=== PATIENT | male | born 1935 | race Caucasian/White ===

== ENCOUNTER 2019-09-11 14:23 | Inpatient (IN) | payer MEDICARE ==
[~2019-09-11] VITALS: Ht 188 cm; Wt 95.2 kg
[2019-09-11] VITALS (13 sets, daily range): BP systolic 138–194; BP diastolic 62–83
[2019-09-11] MEDS ORDERED: ELIQ5TAB PO (14:46)
[2019-09-11] MEDS ORDERED: PRAV10TA4 PO (14:46)
[2019-09-11] MEDS ORDERED: VENTAER INH (14:46)
[2019-09-11] MEDS ORDERED: DILT180C28 PO (14:46)
[2019-09-11] MEDS ORDERED: HYDR-3911 PO (14:46)
[2019-09-11] MEDS ORDERED: POTA10CA32 PO (14:50)
[2019-09-11] MEDS ORDERED: FURO40TA2 PO (14:50)
[2019-09-11] MEDS ORDERED: LOSA50TA88 PO (14:50)
[2019-09-11] MEDS ORDERED: OMEP-218 PO (14:50)
[2019-09-11 14:57] LABS: BASO # 0.1 10^3/uL (0.0-0.2); BASO % 0.5 % (0.0-1.0); EOS # 0.1 10^3/uL (0.0-0.5); EOS % 0.5 % (0.0-3.0); HEMATOCRIT 23.7 % (42.0-52.0); LYMPH # 1.4 10^3/uL (1.5-5.0); LYMPH % 13.1 % (24.0-44.0); MEAN CORPUSCULAR HEMOGLOBIN 16.2 pg (27.0-33.0); MEAN CORPUSCULAR HGB CONC 27.4 g/dl (32.0-36.5); MEAN CORPUSCULAR VOLUME 59.1 fl (80.0-96.0); MONO # 0.9 10^3/uL (0.0-0.8); NEUTROPHILS # 7.9 10^3/uL (1.5-8.5); NEUTROPHILS % 76.6 % (36.0-66.0); PLATELET COUNT, AUTOMATED 459 10^3/uL (150-450); RED BLOOD COUNT 4.01 10^6/uL (4.30-6.10); WHITE BLOOD COUNT 10.3 10^3/uL (4.0-10.0)
[2019-09-11 15:08] LABS: INR 1.57; PROTHROMBIN TIME 18.5 SECONDS (11.8-14.0)
[2019-09-11 15:15] LABS: HEMOGLOBIN 6.5 g/dl (13.5-17.5)
[2019-09-11 15:36] LABS: ALBUMIN 3.5 GM/DL (3.2-5.2); ALT/SGPT 13 U/L (12-78); BILIRUBIN,DIRECT 0.2 MG/DL (0.0-0.2); BILIRUBIN,TOTAL 0.4 MG/DL (0.2-1.0); BLOOD UREA NITROGEN 26 MG/DL (7-18); CALCIUM LEVEL 8.6 MG/DL (8.8-10.2); CARBON DIOXIDE LEVEL 29 MEQ/L (21-32); CHLORIDE LEVEL 107 MEQ/L (98-107); CK-MB VALUE MASS 1.4 NG/ML (<3.6); CPK CREATINE PHOSPHOKINASE 56 U/L (39-308); CREATININE FOR GFR 1.48 MG/DL (0.70-1.30); GLUCOSE, FASTING 104 MG/DL (70-100); LIPASE 111 U/L (73-393); NT-PRO BNP 739 PG/ML (<450); POTASSIUM SERUM 4.5 MEQ/L (3.5-5.1); SODIUM LEVEL 142 MEQ/L (136-145); THYROID STIMULATING HORMONE 0.983 uIU/ML (0.358-3.740); TOTAL PROTEIN 6.8 GM/DL (6.4-8.2); TROPONIN I < 0.02 NG/ML (< 0.10)
[2019-09-11] MEDS ORDERED: NS 1,000 ML IV SCH (15:59)
--- NOTE | 2019-09-11 16:11 | REP ---
REASON: Chest pain. COMPARISON: 09/22/2013, the latest prior. The technique utilized in obtaining the radiograph has magnified the cardiac silhouette and accentuated the interstitial markings. There is cardiomegaly accentuated by technique. The lung ricci are clear and the pleural angles are sharp. There is no significant change in the osseous structures. IMPRESSION: Cardiomegaly without evidence of acute cardiopulmonary disease. Electronically Signed by Grzegorz Justice DO 09/11/2019 05:07 P
[2019-09-11 16:36] LABS: FERRITIN 5 NG/ML (26-388); IRON (FE) 13 UG/DL (65-175); PERCENT SATURATION 3.2 % (19.7-50.0); TOTAL IRON BINDING CAPACITY 406 UG/DL (250-450)
--- NOTE | 2019-09-11 17:49 | HPEPDOC ---
[facility] Medical History & Physical Date of Admission Sep 11, 2019 Date of Service: Sep 11, 2019 Attending Physician: CHARLENE CORDON MD History and Physical TIME OF SERVICE: 5:10 PM CHIEF COMPLAINT: Sent by PCP HISTORY OF PRESENT ILLNESS: This is an 84 year old gentleman who was sent to the ER by his PCP because his "blood counts and hemoglobin were low". Repeat blood work showed a hemoglobin of 6.9. He denied having chest pain, dizziness, shortness of breath, or abdominal pain. He did admit to feeling unsteady on his feet for a few months, which started shortly after he started taking Elquis. He has had multiple colonoscopies done by Dr. Galvan with resection of multiple colonic polyps. REVIEW OF SYSTEMS: 12 point review of systems negative except as listed in HPI PAST MEDICAL/ SURGICAL HISTORY: Chronic HTN Atrial fibrillation CKD 3 Colon polyps. History of CVA Renal cyst, status post drainage Abdominal hernia repair SOCIAL HISTORY: He doesn't smoke He resides in [place] during the winter FAMILY HISTORY: Mother had a cerebral aneurysm ALLERGIES: Please see below. HOME MEDICATIONS: Please see below. PHYSICAL EXAMINATION: Vital Signs Date Time Temp Pulse Resp B/P (MAP) Pulse Ox O2 Delivery O2 Flow Rate FiO2 09/11/19 14:34 98.0 70 20 162/72 (102) 100 09/11/19 16:00 Room Air GEN: well-nourished / well developed/ NAD INTEGUMENT: not flushed/ not jaundice HEENT: NCAT / mucus membranes moist and pink CVS: RRR/NMRG/ radial pulses intact / no lower extremity edema LUNGS: able to speak full sentences without stopping to take a breath / lungs are clear to auscultation bilaterally on room air ABDOMEN: Contour (distended) / soft & not tender with palpation NEURO: CN 2-12 are grossly intact / speech is not dysarthric PSYCH: alert and oriented / able to understand and follow all commands LABORATORY DATA: Immature Granulocyte % (Auto) 0.3, Neutrophils (%) (Auto) 76.6H, Lymphocytes (%) (Auto) 13.1L, Monocytes (%) (Auto) 9.0H, Eosinophils (%) (Auto) 0.5, Basophils (%) (Auto) 0.5, Neutrophils # (Auto) 7.9, Lymphocytes # (Auto) 1.4L, Monocytes # (Auto) 0.9H, Eosinophils # (Auto) 0.1, Basophils # (Auto) 0.1, Nucleated Red Blood Cells % (auto) 0.2H, Prothrombin Time 18.5H, Prothromb Time International Ratio 1.57, Activated Partial Thromboplast Time 36.0, Anion Gap 6L, Glomerular Filtration Rate 48.0, Calcium Level 8.6L, Iron Level 13L, Total Iron Binding Capacity 406, Transferrin % Saturation 3.2L, Ferritin 5L, Total Bilirubin 0.4, Direct Bilirubin 0.2, Aspartate Amino Transf (AST/SGOT) 5L, Alanine Aminotransferase (ALT/SGPT) 13, Alkaline Phosphatase 72, Total Creatine Kinase 56, Creatine Kinase MB 1.4, Creatine Kinase MB Relative Index 2.50, Troponin I < 0.02, KN-Cnf-C-Type Natriuretic Peptide 739H, Total Protein 6.8, Albumin 3.5, Albumin/Globulin Ratio 1.1, Lipase 111, Thyroid Stimulating Hormone (TSH) 0.983 IMAGING: Chest x-ray "IMPRESSION: Cardiomegaly without evidence of acute cardiopulmonary disease." ASSESSMENT: Mr. Arguelles is an 84-year-old with a history of HTN, A. fib, CKD 3, history of CVA, and history of colonic polyps who is admitted for management of acute blood loss anemia 2/2 LGIB. PLAN: 1. Acute Blood loss Anemia / Lower GI Bleed This is likely the cause of his c/o of weakness. GI bleed may be due to polyps. Other less likely causes include diverticulosis, angiodysplasia's (most common cause of small-bowel bleeding in older patients), AVM, colorectal cancer Suspect thrombocytosis is reactive 2/2 iron deficiency Plan: admit to PCU / fall precautions / check orthostats / transfuse 2 units of PRBCs now / CLD w IVF pending evaluation by / f/u serial Hg & iron studies / hold apixaban / PT eval prior to discharge 2. Resistant HTN The cause of the acute elevation in BP unclear at this time. His BNP is also elevated and his chest xray show cardiomegaly Plan: increase hydralazine from 50mg to 75 mgBID, c/w losartan 50mg BID, lasix 40mg daily and diltiazem 180mg daily / f/u Echo to r/o hypertensive heart dz 3. ROBI on CKD 3 vs CKD3 Plan: IVF / f/u Ulytes for FEUrea & renal US 4. A Fib - diltiazem/ hold apixaban 5. hx of CVA - pravastatin DVT PROPHYLAXIS: SCDs DISPOSITION: home after more than 2 midnight's stay Home Medications Scheduled Diltiazem HCl (Dilt-Xr) 180 Mg Cap.er.deg, 180 MG PO DAILY Furosemide (Furosemide) 40 Mg Tablet, 40 MG PO DAILY Hydralazine HCl (Hydralazine HCl) 50 Mg Tablet, 50 MG PO BID Losartan Potassium (Losartan Potassium) 50 Mg Tablet, 50 MG PO BID Potassium Chloride (Potassium Chloride) 10 Meq Capsule.er, 10 MEQ PO DAILY Pravastatin Sodium (Pravastatin Sodium) 10 Mg Tablet, 10 MG PO QHS Scheduled PRN Albuterol Sulfate (Ventolin Hfa) 18 Gm Hfa.aer.ad, 2 PUFFS INH Q6H PRN for SHORTNESS OF BREATH Omeprazole (Omeprazole) 20 Mg Capsule.dr, 20 MG PO DAILY PRN for HEARTBURN Allergies Coded Allergies: No Known Allergies (Unverified , 09/11/19) A-FIB/CHADSVASC A-FIB History Current/History of A-Fib/PAF?: Yes Current PO Anticoag Therapy: No Treatment Reason Anticoagulant not given: Current bleeding CHARLENE CORDON MD Sep 11, 2019 17:49
[2019-09-11] MEDS ORDERED: OMEPRAZOLE 20 MG CAP PO PRN (18:00)
[2019-09-11] MEDS ORDERED: ALBUTEROL 90 MCG/ACT 8GM HFA INHALER INH PRN (18:00)
[2019-09-11] MEDS: LOSARTAN 50MG TABLET PO SCH (18:32)
[2019-09-11] MEDS: **hydrALAZINE HCL** 25 MG TAB PO SCH (18:32)
--- NOTE | 2019-09-11 20:31 | REPVR ---
PROCEDURE INFORMATION: Exam: US Retroperitoneal Limited, Kidneys Exam date and time: 09/11/2019 5:03 PM Age: 84 years old Clinical indication: Abnormal findings; Abnormal lab test; Abnormal kidney function lab tests; Additional info: Didier TECHNIQUE: Imaging protocol: Real-time ultrasound of the retroperitoneum with image documentation. Examination was focused on the kidneys. COMPARISON: No relevant prior studies available. FINDINGS: Right kidney: Right kidney measures 10.7 x 4.7 x 4.1 cm. Lower pole cyst right kidney measures 3.4 x 3.1 x 3 cm. Left kidney: Left kidney measures 10 x 4.7 x 5 cm. Small cyst lower pole measures 1.2 x 1.2 x 1.2 cm. Prostate: [id number] prostatomegaly with the prostate measuring 4.3 x 3.3 x 3.9 cm. Bladder: Visualized bladder unremarkable. IMPRESSION: 1. Bilateral renal cysts. No complex features. 2. Mild to moderate prostatomegaly. Electronically signed by: Lito Staley On 09/11/2019 20:30:48 PM
[2019-09-11] MEDS ORDERED: PRAVASTATIN 10 MG TAB PO SCH (21:00)
--- NOTE | 2019-09-11 21:35 | ECGEPIP ---
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
[2019-09-11 22:12] LABS: HEMATOCRIT 25.6 % (42.0-52.0); HEMOGLOBIN 7.1 g/dl (13.5-17.5)
[2019-09-12] VITALS (11 sets, daily range): BP systolic 158–181; BP diastolic 62–84
[2019-09-12 05:07] LABS: HEMATOCRIT 28.7 % (42.0-52.0); HEMOGLOBIN 8.4 g/dl (13.5-17.5); MEAN CORPUSCULAR HEMOGLOBIN 18.8 pg (27.0-33.0); MEAN CORPUSCULAR HGB CONC 29.3 g/dl (32.0-36.5); MEAN CORPUSCULAR VOLUME 64.1 fl (80.0-96.0); RED BLOOD COUNT 4.48 10^6/uL (4.30-6.10); WHITE BLOOD COUNT 7.4 10^3/uL (4.0-10.0)
[2019-09-12 05:13] LABS: PLATELET COUNT, AUTOMATED 313 10^3/uL (150-450)
[2019-09-12 05:27] LABS: BLOOD UREA NITROGEN 19 MG/DL (7-18); CALCIUM LEVEL 8.4 MG/DL (8.8-10.2); CARBON DIOXIDE LEVEL 29 MEQ/L (21-32); CHLORIDE LEVEL 109 MEQ/L (98-107); CREATININE FOR GFR 1.09 MG/DL (0.70-1.30); GLOMERULAR FILTRATION RATE > 60.0 (>35); GLUCOSE, FASTING 82 MG/DL (70-100); SODIUM LEVEL 139 MEQ/L (136-145)
[2019-09-12] MEDS: **hydrALAZINE HCL** 25 MG TAB PO SCH (08:20)
[2019-09-12] MEDS: LOSARTAN 50MG TABLET PO SCH (08:21)
[2019-09-12] MEDS ORDERED: diltiaZEM **CD** 180 MG CAP PO SCH (09:00)
[2019-09-12] MEDS ORDERED: FUROSEMIDE 40 MG TAB PO SCH (09:00)
[2019-09-12] MEDS ORDERED: POTASSIUM CHLORIDE 10 MEQ SR TABLET PO SCH (09:00)
--- NOTE | 2019-09-12 10:07 | IPNPDOC ---
Subjective Date Seen The patient was seen on 09/12/19. Subjective Chief Complaint/HPI Patient is asymptomatic as per patient, he only had felt tiredness. No other symptoms until he was seen by PCP and was found to have a very low hemoglobin of 6.5, and was transferred to ED for further care. Patient denies dark stools, nausea, vomiting with blood etc General: Denies: ROS Unobtainable, Chills, Night Sweats, Fatigue, Malaise, Normal Appetite, Other Symptoms Constitutional: Denies: Chills, Fever, Malaise, Night Sweats, Weakness, Fatigue, Weight Loss, Lethargy, Other Pulmonary: Denies: Dyspnea, Cough, Pleuritic Chest Pain, Other Symptoms Cardiovascular: Denies: Chest Pain, Palpitations, Orthopnea, Paroxysmal Noc. Dyspnea, Edema, Lt Headedness, Other Symptoms Gastrointestinal: Denies: Nausea, Vomiting, Abdominal Pain, Diarrhea, Constipation, Melena, Hematochezia, Other Symptoms Hematologic: Denies: Bruising, Bleeding Excessively, Petecchia, Purpura, Enlarged Lymph Nodes, Other Hematologic Endocrine: Denies: Polydipsia, Polyphagia, Polyuria, Heat Intolerance, Cold In tolerance, Other Endocrine Sx Musculoskeletal: Denies: Neck Pain, Back Pain, Shoulder Pain, Arm Pain, Hand Pain, Leg Pain, Foot Pain, Joint Pain, Muscle Pain, Spasms, Other Symptoms Neurological: Denies: Weakness, Numbness, Incoordination, Change in speech, Confusion, Seizures, Other Symptoms Objective Physical Examination General Exam: Positive: Alert, Cooperative Eye Exam: Positive: PERRLA, Conjunctiva & lids normal ENT Exam: Positive: Atraumatic, Mucous membr. moist/pink Neck Exam: Positive: Supple Chest Exam: Positive: Clear to auscultation Heart Exam: Positive: Rate Normal, Normal S1 Abdomen Exam: Positive: Normal bowel sounds, Soft Male Exam: Positive: Normal Genital Exam Extremity Exam: Positive: Normal pulses Skin Exam: Positive: Nl turgor and temperature Neuro Exam: Positive: Strength at 5/5 X4 ext, Sensation Intact, Cranial Nerves 3-12 NL Psych Exam: Positive: Mood NL, Oriented x 3 Assessment /Plan Problems (1) Anemia due to blood loss Status: Acute Problem Text: Acute Blood loss Anemia most likely secondary to Lower GI Bleed Patient has been complaining of generalized weakness since last few weeks, and was found to have a hemoglobin of 6.5, PCP GI bleed may be due to polyps. Other less likely causes include diverticulosis, angiodysplasia's (most common cause of small-bowel bleeding in older patients), AVM, colorectal cancer Suspect thrombocytosis is reactive 2/2 iron deficiency Patient just received total 5 units of PRBC after fourth unit. His hemoglobin is 8.4 and 28.7 He is a scheduled to be seen by for possible EGD and colonoscopy Continue PPI and monitor CBC (2) Afib Status: Chronic Problem Text: Patient had a history of A. fib and he is taking diltiazem and apaxiban . He presently was on by mouth Coumadin later was changed to apaxiban since January 2019 Plethora is on hold secondary to GI bleed, will restart once cleared from GI and surgery n (3) HTN (hypertension) Status: Chronic Problem Text: History of chronic hypertension and follows up with PCP His BNP is also elevated and his chest xray show cardiomegaly Increase hydralazine to 50 mg by mouth 4 times a day with holding parameters, c/w losartan 50mg BID, lasix 40mg daily and diltiazem 180mg daily / f/u Echo to r/o hypertensive heart dz Blood pressure is still slightly elevated 178/78. We will monitor patient's blood pressure on current increased dose of medications and adjust dose accordingly in 24-48 hours (4) ROBI (acute kidney injury) Status: Acute Problem Text: ROBI on CKD 3 vs [id number]. His BUN is 19 and creatinine 1.09. Today Continue IVF / f/u Ulytes for FEUrea , monitor renal function Renal sonogram shows:IMPRESSION: 1. Bilateral renal cysts. No complex features. 2. Mild to moderate prostatomegaly. Plan/VTE VTE Prophylaxis Ordered?: Yes VS, I&O, 24H, Fishbone Vital Signs/I&O Vital Signs Date Time Temp Pulse Resp B/P (MAP) Pulse Ox O2 Delivery O2 Flow Rate FiO2 09/12/19 08:21 72 09/12/19 08:20 158/62 09/12/19 08:00 98.0 17 94 Room Air I&O- Last 24 Hours up to 6 AM 09/12/19 05:59 Intake Total 1450 ml Output Total 150 ml Balance 1300 ml Laboratory Data 24H LABS Laboratory Tests 2 09/11/19 14:47: Immature Granulocyte % (Auto) 0.3, Neutrophils (%) (Auto) 76.6H, Lymphocytes (%) (Auto) 13.1L, Monocytes (%) (Auto) 9.0H, Eosinophils (%) (Auto) 0.5, Basophils (%) (Auto) 0.5, Neutrophils # (Auto) 7.9, Lymphocytes # (Auto) 1.4L, Monocytes # (Auto) 0.9H, Eosinophils # (Auto) 0.1, Basophils # (Auto) 0.1, Nucleated Red Blood Cells % (auto) 0.2H, Prothrombin Time 18.5H, Prothromb Time International Ratio 1.57, Activated Partial Thromboplast Time 36.0, Anion Gap 6L, Glomerular Filtration Rate 48.0, Calcium Level 8.6L, Iron Level 13L, Total Iron Binding Capacity 406, Transferrin % Saturation 3.2L, Ferritin 5L, Total Bilirubin 0.4, Direct Bilirubin 0.2, Aspartate Amino Transf (AST/SGOT) 5L, Alanine Aminotransferase (ALT/SGPT) 13, Alkaline Phosphatase 72, Total Creatine Kinase 56, Creatine Kinase MB 1.4, Creatine Kinase MB Relative Index 2.50, Troponin I < 0.02, BN-Xfr-X-Type Natriuretic Peptide 739H, Total Protein 6.8, Albumin 3.5, Albumin/Globulin Ratio 1.1, Lipase 111, Thyroid Stimulating Hormone (TSH) 0.983 09/12/19 04:55: Nucleated Red Blood Cells % (auto) 0.5H, Anion Gap 1L, Glomerular Filtration Rate > 60.0, Calcium Level 8.4L 09/12/19 06:12: Urine Random Creatinine 103.0, Urine Random Sodium 91 CBC/BMP Laboratory Tests 09/11/19 14:47 09/11/19 21:58 09/12/19 04:55 EVELYN CAR MD Sep 12, 2019 10:07
[2019-09-12] MEDS ORDERED: SLF 3 ML SYR IV PRN (11:15)
[2019-09-12] MEDS ORDERED: **hydrALAZINE HCL** 25 MG TAB PO SCH (12:00)
--- NOTE | 2019-09-12 12:14 | DS.PDOC ---
Discharge Summary General Date of Admission Sep 11, 2019 at 15:59 Date of Discharge 09/12/19 Discharge Summary PROCEDURES PERFORMED DURING STAY: None. ADMITTING DIAGNOSES: 1. Acute blood loss anemia. DISCHARGE DIAGNOSES: 1. Acute blood loss anemia, atrial fibrillation with controlled ventricular rate, hypertension, acute kidney injury- resolved COMPLICATIONS/CHIEF COMPLAINT: Anemia Due To Blood Loss. HISTORY OF PRESENT ILLNESS: This is an 84 year old gentleman who was sent to the ER by his PCP because his "blood counts and hemoglobin were low". Repeat blood work showed a hemoglobin of 6.9. He denied having chest pain, dizziness, shortness of breath, or abdominal pain. He did admit to feeling unsteady on his feet for a few months, which started shortly after he started taking Elquis. He has had multiple colonoscopies done by Dr. Galvan with resection of multiple colonic polyps.. HOSPITAL COURSE: (1) Anemia due to blood loss Acute Blood loss Anemia most likely secondary to Lower GI Bleed Patient has been complaining of generalized weakness since last few weeks, and was found to have a hemoglobin of 6.5, PCP GI bleed may be due to polyps. Other less likely causes include diverticulosis, angiodysplasia's (most common cause of small-bowel bleeding in older patients), AVM, colorectal cancer Suspect thrombocytosis is reactive 2/2 iron deficiency Patient just received total 5 units of PRBC after fourth unit. His hemoglobin is 8.4 and 28.7 Patient was seen by today, he recommended to hold Sandra quest patient can be discharged home and it seems like a chronic GI bleed and he will follow patient on 09/17/2019 for colonoscopy as an outpatient Pt will be discharged home today on all his current home meds (2) Afib Patient had a history of A. fib and he is taking diltiazem and apaxiban He presently was on by mouth Coumadin later was changed to apaxiban since January 2019 We will hold by mouth Eliquis for procedure to be performed by surgery as an outpatient (3) HTN (hypertension) History of chronic hypertension and follows up with PCP His BP also elevated and his chest xray show cardiomegaly Increase hydralazine to 50 mg by mouth 4 times a day with holding parameters, c/w losartan 50mg BID, lasix 40mg daily and diltiazem 180mg daily / f/u Echo to r/o hypertensive heart dz Blood pressure is still slightly elevated 178/78. We will monitor patient's blood pressure on current increased dose of medications and adjust dose accordingly in 24-48 hours (4) ROBI (acute kidney injury) ROBI on CKD 3 vs [id number]. His BUN is 19 and creatinine 1.09. Today Continue IVF / f/u Ulytes for FEUrea , monitor renal function Renal sonogram shows:IMPRESSION: 1. Bilateral renal cysts. No complex features. 2. Mild to moderate prostatomegaly. DISCHARGE MEDICATIONS: Please see below. ALLERGIES: Please see below. PHYSICAL EXAMINATION ON DISCHARGE: VITAL SIGNS: Please see below. GENERAL: Within normal limits HEENT: PERRLA. Extraocular muscles intact NECK: Supple CARDIOVASCULAR EXAMINATION: S1, S2, regular RESPIRATORY EXAMINATION: Clear to A&P ABDOMINAL EXAMINATION: , Soft, nontender, bowel sound present EXTREMITIES: No clubbing, cyanosis, edema SKIN: Normal NEUROLOGICAL EXAMINATION: . No focal motor sensory deficit PSYCHIATRIC EXAMINATION: Normal LABORATORY DATA: Please see below. IMAGING: Renal sono:1. Bilateral renal cysts. No complex features. 2. Mild to moderate prostatomegaly. PROGNOSIS: Good ACTIVITY: As tolerated. DIET: As tolerated DISCHARGE PLAN: Discharge home. Follow with Dr. Kris shah as an outpatient, scheduled for colonoscopy on 09/17/2019 as outpatient DISPOSITION: . Home DISCHARGE INSTRUCTIONS: 1. As per discharge instructions. ITEMS TO FOLLOWUP ON ON OUTPATIENT: 1. As above. DISCHARGE CONDITION: Stable. TIME SPENT ON DISCHARGE: 25 minutes. Vital Signs/I&Os Vital Signs Date Time Temp Pulse Resp B/P (MAP) Pulse Ox O2 Delivery O2 Flow Rate FiO2 09/12/19 08:21 72 09/12/19 08:20 158/62 09/12/19 08:00 98.0 17 94 Room Air I&O- Last 24 Hours up to 6 AM 09/12/19 06:00 Intake Total 1450 ml Output Total 150 ml Balance 1300 ml Laboratory Data Labs 24H Laboratory Tests 2 09/11/19 14:47: Immature Granulocyte % (Auto) 0.3, Neutrophils (%) (Auto) 76.6H, Lymphocytes (%) (Auto) 13.1L, Monocytes (%) (Auto) 9.0H, Eosinophils (%) (Auto) 0.5, Basophils (%) (Auto) 0.5, Neutrophils # (Auto) 7.9, Lymphocytes # (Auto) 1.4L, Monocytes # (Auto) 0.9H, Eosinophils # (Auto) 0.1, Basophils # (Auto) 0.1, Nucleated Red Blood Cells % (auto) 0.2H, Prothrombin Time 18.5H, Prothromb Time International Ratio 1.57, Activated Partial Thromboplast Time 36.0, Anion Gap 6L, Glomerular Filtration Rate 48.0, Calcium Level 8.6L, Iron Level 13L, Total Iron Binding C apacity 406, Transferrin % Saturation 3.2L, Ferritin 5L, Total Bilirubin 0.4, Direct Bilirubin 0.2, Aspartate Amino Transf (AST/SGOT) 5L, Alanine Aminotransferase (ALT/SGPT) 13, Alkaline Phosphatase 72, Total Creatine Kinase 56, Creatine Kinase MB 1.4, Creatine Kinase MB Relative Index 2.50, Troponin I < 0.02, JC-Ohx-F-Type Natriuretic Peptide 739H, Total Protein 6.8, Albumin 3.5, Albumin/Globulin Ratio 1.1, Lipase 111, Thyroid Stimulating Hormone (TSH) 0.983 09/12/19 04:55: Nucleated Red Blood Cells % (auto) 0.5H, Anion Gap 1L, Glomerular Filtration Rate > 60.0, Calcium Level 8.4L 09/12/19 06:12: Urine Random Creatinine 103.0, Urine Random Sodium 91 09/12/19 10:36: Magnesium Level 2.1 CBC/BMP Laboratory Tests 09/11/19 14:47 09/11/19 21:58 09/12/19 04:55 09/12/19 10:36 Discharge Medications Scheduled Diltiazem HCl (Dilt-Xr) 180 Mg Cap.er.deg, 180 MG PO DAILY, (Reported) Furosemide (Furosemide) 40 Mg Tablet, 40 MG PO DAILY, (Reported) Hydralazine HCl (Hydralazine HCl) 50 Mg Tablet, 50 MG PO BID, (Reported) Losartan Potassium (Losartan Potassium) 50 Mg Tablet, 50 MG PO BID, (Reported) Potassium Chloride (Potassium Chloride) 10 Meq Capsule.er, 10 MEQ PO DAILY, (Reported) Pravastatin Sodium (Pravastatin Sodium) 10 Mg Tablet, 10 MG PO QHS, (Reported) Scheduled PRN Albuterol Sulfate (Ventolin Hfa) 18 Gm Hfa.aer.ad, 2 PUFFS INH Q6H PRN for SHORTNESS OF BREATH, (Reported) Omeprazole (Omeprazole) 20 Mg Capsule.dr, 20 MG PO DAILY PRN for HEARTBURN, (Reported) Allergies Coded Allergies: No Known Allergies (Unverified , 09/11/19) EVELYN ACR MD Sep 12, 2019 12:14
--- NOTE | 2019-09-12 12:38 | CR.PDOC ---
General Surgery Consultation Date of Consultation 09/12/19 History and Physical CONSULT REPORT FOR: hospitalist service REASON FOR CONSULTATION: GI bleeding, anemia HISTORY OF PRESENT ILLNESS: patient is a 84 M admitted for symptomatic anemia. He was found to have a hgb of 6.6 and hematocrit of 25 on an outpatient labs done by his primary care provider. He reports weakness, easy fatigability. He is on Eliquis for atrial fibrillation. On the records his last colonoscopy was done in 2012 and he was found to have a flat polyp at 20 cm from the anal verge which was incompletely resected with a pathology of tubular villous adenoma. He tells me he has had at least 2 more colonoscopies since then but this was done at [facility] in [facility]. The last one was in 2017 or 18 and they did not find any persistence of the polyp. He has been noted to be anemic chronically but has not needed any blood transfusion. He is not on iron supplementation. He has been on Coumadin for atrial fibrillation which was changed to Eliquis last year. I do not find any further surveillance colonoscopy done. He travels back and forth from [place] in the winter to back here in the summer and he is salvaging care with a new provider. He denies noticing any black or maroon colored or bloody stool. He denies any abdominal pain or discomfort, significant heartburn symptoms. He denies any unexplained weight loss.. PAST MEDICAL HISTORY: 1. Atrial fibrillation on anticoagulation 2. Hypertension 3. Hyperlipidemia 4. COPD 5. Pulmonary hypertension 6. Chronic anemia 7. Gastroesophageal reflux disease 8. Cyst in the kidney being followed by urology 9. CVA in 2013. 10. History of colon polyps PAST SURGICAL HISTORY: INCLUDES: 1. Laparoscopic bilateral inguinal hernia repair 2. Left arm surgery 1994 3. Colonoscopy performed in 2010 and 2012 4. UGI endoscopy with dilation of Schatzki ring in 2010 ALLERGIES: Please see below. FAMILY HISTORY: Denies any significant family history for GI malignancies. HOME MEDICATIONS: Please see below. REVIEW OF SYSTEMS: GENERAL: Patient denies any unexplained weight loss, fevers or chills. He lives by himself and is fairly independent except for driving which he has given up. HEENT: Patient reports left peripheral vision has been affected by prior stroke NECK: Denies any neck pain CARDIOVASCULAR: Denies chest pain and palpitations. MUSCULOSKELETAL: Denies arthralgias, back pain and thrombophlebitis. SKIN: Denies rash. NEUROLOGIC: Patient is a previous CVA in 2014 affecting primarily his left peripheral vision. PSYCHIATRIC: Denies anxiety and depression. ENDOCRINE: Denies thyroid disease. HEMATOLOGY/ONCOLOGY: Patient is on anticoagulation (ELiquis). Last intake was morning HEART: Denies any chest pains, palpitations, paroxysmal dyspnea, orthopnea. PULMONARY: Denies chronic cough, dyspnea and wheezing. GASTROINTESTINAL: See HPI. GENITOURINARY: Denies dysuria, frequency, hematuria and nocturia. ENDOCRINE: Denies polydipsia, polyphagia, polyuria, heat or cold intolerance. INFECTIOUS: Denies any recent upper respiratory tract infection, UTI, need for use of antibiotics. NUTRITION: Reports good appetite. PHYSICAL EXAMINATION: VITALS SIGNS: Please see below. GENERAL APPEARANCE: Patient seen in his room. He is independent, walking comfortably around. He looks well.. SKIN: Warm and moist. HEENT: Normocephalic, atraumatic. [place] palpebral conjunctiva, anicteric scl erae. Lips and mucosa appear moist. NECK: Supple, no thyromegaly. No obvious jugular venous distention. LUNGS: Clear to auscultation bilaterally. No wheezing appreciated. HEART: No chest wall abnormalities. Regular rate and rhythm with no murmurs appreciated. ABDOMEN: Abdomen is round, soft, nondistended. He has prior laparoscopic port sites from his inguinal hernia repair. No noticeable hernia recurrence. Nontender on palpation. EXTREMITIES: Extremities have no deformities. No edema identified ANCILLARIES: . LABORATORY DATA: Please see below. IMAGING STUDIES: . IMPRESSION AND PLAN: Acute over chronic anemia presumed to be posthemorrhagic most likely from chronic or intermittent gastrointestinal bleeding He is not showing any active bleeding. The fact that despite having a hemoglobin of 6.6 that he is not symptomatic from this tells me that the bleeding occurs either intermittently or chronic low-grade in nature. He has had prior colonoscopies as well as endoscopies done. He is on anticoagulation for atrial fibrillation. I spoke to him about performing an endoscopy and colonoscopy. Since he last took Eliquis yesterday, the earliest we can do the procedure will be Sunday. I offered to do the procedure either on Sunday but unfortunately he would have to stay in the hospital or I would schedule the procedure on Sunday (which is my scheduled procedure day). He would like to possibly go home and do the procedure on Sunday. Bowel prep will be on Sunday. I'll have my office reach out to him for the instructions for the colonoscopy and I will book him for next Sunday. He is instructed to continue to hold off on his anticoagulation until then. Vital Signs Vital Signs Date Time Temp Pulse Resp B/P (MAP) Pulse Ox O2 Delivery O2 Flow Rate FiO2 09/12/19 08:21 72 09/12/19 08:20 158/62 09/12/19 08:00 98.0 17 94 Room Air I&Os I&O- Last 24 Hours up to 6 AM0 09/12/19 05:59 Intake Total 1450 ml Output Total 150 ml Balance 1300 ml Laboratory Data Labs 24H Laboratory Tests 2 09/11/19 14:47: Immature Granulocyte % (Auto) 0.3, Neutrophils (%) (Auto) 76.6H, Lymphocytes (%) (Auto) 13.1L, Monocytes (%) (Auto) 9.0H, Eosinophils (%) (Auto) 0.5, Basophils (%) (Auto) 0.5, Neutrophils # (Auto) 7.9, Lymphocytes # (Auto) 1.4L, Monocytes # (Auto) 0.9H, Eosinophils # (Auto) 0.1, Basophils # (Auto) 0.1, Nucleated Red Blood Cells % (auto) 0.2H, Prothrombin Time 18.5H, Prothromb Time International Ratio 1.57, Activated Partial Thromboplast Time 36.0, Anion Gap 6L, Glomerular Filtration Rate 48.0, Calcium Level 8.6L, Iron Level 13L, Total Iron Binding Capacity 406, Transferrin % Saturation 3.2L, Ferritin 5L, Total Bilirubin 0.4, Direct Bilirubin 0.2, Aspartate Amino Transf (AST/SGOT) 5L, Alanine Aminotransferase (ALT/SGPT) 13, Alkaline Phosphatase 72, Total Creatine Kinase 56, Creatine Kinase MB 1.4, Creatine Kinase MB Relative Index 2.50, Troponin I < 0.02, MU-Ldl-T-Type Natriuretic Peptide 739H, Total Protein 6.8, Albumin 3.5, Albumin/Globulin Ratio 1.1, Lipase 111, Thyroid Stimulating Hormone (TSH) 0.983 09/12/19 04:55: Nucleated Red Blood Cells % (auto) 0.5H, Anion Gap 1L, Glomerular Filtration Rate > 60.0, Calcium Level 8.4L 09/12/19 06:12: Urine Random Creatinine 103.0, Urine Random Sodium 91 CBC/BMP Laboratory Tests 09/11/19 14:47 09/11/19 21:58 09/12/19 04:55 Home Medications Scheduled Diltiazem HCl (Dilt-Xr) 180 Mg Cap.er.deg, 180 MG PO DAILY, (Reported) Furosemide (Furosemide) 40 Mg Tablet, 40 MG PO DAILY, (Reported) Hydralazine HCl (Hydralazine HCl) 50 Mg Tablet, 50 MG PO BID, (Reported) Losartan Potassium (Losartan Potassium) 50 Mg Tablet, 50 MG PO BID, (Reported) Potassium Chloride (Potassium Chloride) 10 Meq Capsule.er, 10 MEQ PO DAILY, (Reported) Pravastatin Sodium (Pravastatin Sodium) 10 Mg Tablet, 10 MG PO QHS, (Reported) Scheduled PRN Albuterol Sulfate (Ventolin Hfa) 18 Gm Hfa.aer.ad, 2 PUFFS INH Q6H PRN for SHORTNESS OF BREATH, (Reported) Omeprazole (Omeprazole) 20 Mg Capsule.dr, 20 MG PO DAILY PRN for HEARTBURN, (Reported) Allergies Coded Allergies: No Known Allergies (Unverified , 09/11/19) URMILA BANDA MD Sep 12, 2019 10:48
[2019-09-12] MEDS ORDERED: SLF 3 ML SYR IV SCH (14:00)
--- NOTE | 2019-09-13 13:51 | ECHO ---
DATE OF STUDY: 09/12/2019 AGE: 84. REFERRING PROVIDER: Sari Palacio MD PATIENT LOCATION: Room 3212. REASON FOR THE STUDY: Shortness of breath. 2D MEASUREMENTS: IVS: 1.4 cm LV: 4.5 cm LVPW: 1.4 cm LA: 5.3 cm Aorta: 3.5 cm IVC: 2.6 cm DOPPLER MEASUREMENTS: Peak velocity across the aortic valve: 1.7 m/s Peak velocity across the LVOT: 0.8 m/s Mitral E: 1.5 Maximum tricuspid valve velocity: 3.5 m/s 2D COMMENTS: 1. Normal left ventricular size with mildly increased left ventricular wall thickness and a normal global left ventricular systolic function. The estimated left ventricular systolic ejection fraction is 60% to 65%. 2. Moderately enlarged left atrium. Severely dilated right atrium. Normal right ventricle. 3. The atrial septum appeared to be normal without evidence of defect or shunt. 4. Normal aortic root. 5. No pericardial effusion seen. 6. Mildly calcified aortic valve with normal leaflet excursion. Mildly calcified mitral annulus with normal anterior mitral leaflet motion. Normal tricuspid valve. The pulmonic valve and proximal pulmonary artery branches were not well visualized. 7. The inferior vena cava was dilated, central venous pressure might be elevated. DOPPLER: It detects trace aortic regurgitation, mild mitral regurgitation, and moderate tricuspid regurgitation. The calculated pulmonary artery systolic pressure varies between 40-50 mmHg. Assessment of the left ventricular diastolic function was limited. IMPRESSION: 1. Normal global left ventricular systolic function with mild concentric left ventricle hypertrophy. Assessment of the left ventricular diastolic function was limited. 2. Aortic valve sclerosis with trace aortic regurgitation and trivial aortic stenosis. 3. Mitral annulus calcification with moderately enlarged left atrium and mild mitral regurgitation. 4. Moderate tricuspid regurgitation with moderate pulmonary hypertension and a markedly dilated left atrium. 5. There was some features of elevated central venous pressure, the inferior vena cava was mildly enlarged. 6. 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
== END 2019-09-12 15:28 | disposition home or self-care (01) | DRG 378 ==
LOC: M ED 14:23 → EDBD 14:23 → M ED INP 15:59 → ENRESERV 16:51 → M PCU 18:04
PROVIDERS: ADMIT Internal Medicine; ATTEND Internal Medicine
PROC: 30233N1 Transfusion of Nonautologous Red Blood Cells into Peripheral Vein, Percutaneous Approach (ICD-10-PCS; principal; 2019-09-11)
DX: K92.2 Gastrointestinal hemorrhage, unspecified (principal); D62 Acute posthemorrhagic anemia; N17.9 Acute kidney failure, unspecified; I48.20 Chronic atrial fibrillation, unspecified; I12.9 Hypertensive chronic kidney disease with stage 1 through stage 4 chronic kidney disease, or unspecified chronic kidney disease; Z79.899 Other long term (current) drug therapy; N18.3 Chronic kidney disease, stage 3 (moderate); Z86.73 Personal history of transient ischemic attack (TIA), and cerebral infarction without residual deficits; Z79.01 Long term (current) use of anticoagulants; J44.9 Chronic obstructive pulmonary disease, unspecified; K21.9 Gastro-esophageal reflux disease without esophagitis; I27.20 Pulmonary hypertension, unspecified; E78.5 Hyperlipidemia, unspecified; N28.1 Cyst of kidney, acquired

== ENCOUNTER → 2019-09-11 | Outpatient (REF) | payer MEDICARE ==
[~2019-09-11] MED LIST: DILT180C28 PO; ELIQ5TAB PO; FURO40TA2 PO; HYDR-3911 PO; LOSA50TA88 PO; OMEP-218 PO; POTA10CA32 PO; PRAV10TA4 PO; VENTAER INH
[2019-09-11 13:14] LABS: BASO # 0.1 10^3/uL (0.0-0.2); BASO % 0.6 % (0.0-1.0); EOS % 0.5 % (0.0-3.0); LYMPH # 0.9 10^3/uL (1.5-5.0); LYMPH % 9.9 % (24.0-44.0); MEAN CORPUSCULAR HEMOGLOBIN 15.9 pg (27.0-33.0); MEAN CORPUSCULAR HGB CONC 26.4 g/dl (32.0-36.5); MEAN CORPUSCULAR VOLUME 60.2 fl (80.0-96.0); MONO # 0.8 10^3/uL (0.0-0.8); MONO % 8.8 % (0.0-5.0); NEUTROPHILS % 79.9 % (36.0-66.0); PLATELET COUNT, AUTOMATED 452 10^3/uL (150-450); RED BLOOD COUNT 4.15 10^6/uL (4.30-6.10); WHITE BLOOD COUNT 8.8 10^3/uL (4.0-10.0)
[2019-09-11 13:15] LABS: HEMOGLOBIN 6.6 g/dl (13.5-17.5)
[2019-09-11 13:36] LABS: CALCIUM LEVEL 8.9 MG/DL (8.8-10.2); CREATININE FOR GFR 1.5 MG/DL (0.70-1.30); GLOMERULAR FILTRATION RATE 47.2 (>35); POTASSIUM SERUM 4.5 MEQ/L (3.5-5.1)
[2019-09-11 13:37] LABS: ALBUMIN 3.6 GM/DL (3.2-5.2); BILIRUBIN,TOTAL 0.5 MG/DL (0.2-1.0)
[2019-09-11 14:43] LABS: HEMOGLOBIN A1c 5.3 %
== END ==
LOC: M SFHCPLAZ 09:50
PROVIDERS: ATTEND Physician Assistant Medical
DX: I10 Essential (primary) hypertension (principal); E66.3 Overweight; Z79.899 Other long term (current) drug therapy

== ENCOUNTER → 2019-09-19 | Outpatient (CLI) | payer MEDICARE | LOC: M LABSMTC 11:18 | PROVIDERS: ATTEND Anesthesiology | DX: Z03.818 Encounter for observation for suspected exposure to other biological agents ruled out (principal); Z11.59 Encounter for screening for other viral diseases | CPT/HCPCS: C9803; U0003 ==

== ENCOUNTER 2019-09-22 11:18 | Day surgery (SDC) | payer MEDICARE ==
[~2019-09-22] VITALS: Ht 188 cm; Wt 92.9 kg
[~2019-09-22 11:18] MED LIST changes: +NS 1,000 ML IV ONE
[2019-09-22 12:43] LABS: BASO # 0.1 10^3/uL (0.0-0.2); BASO % 0.6 % (0.0-1.0); EOS % 0.3 % (0.0-3.0); HEMATOCRIT 36.9 % (42.0-52.0); HEMOGLOBIN 10.6 g/dl (13.5-17.5); LYMPH % 11.8 % (24.0-44.0); MEAN CORPUSCULAR HEMOGLOBIN 19.3 pg (27.0-33.0); MEAN CORPUSCULAR HGB CONC 28.7 g/dl (32.0-36.5); MEAN CORPUSCULAR VOLUME 67.1 fl (80.0-96.0); MONO # 0.7 10^3/uL (0.0-0.8); MONO % 8.2 % (0.0-5.0); NEUTROPHILS # 6.9 10^3/uL (1.5-8.5); NEUTROPHILS % 78.9 % (36.0-66.0); PLATELET COUNT, AUTOMATED 388 10^3/uL (150-450); WHITE BLOOD COUNT 8.7 10^3/uL (4.0-10.0)
[2019-09-22] MEDS ORDERED: LIDOCAINE 2% 100MG/5ML SDV (FOR ANES.) As Ordered ONE (14:08)
[2019-09-22] MEDS ORDERED: propofoL 200 MG/20 ML VIAL As Ordered ONE ×4 (14:08→15:21)
--- NOTE | 2019-09-22 15:38 | ROOR ---
Patient Name: Fred Arguelles Procedure Date: 09/22/2019 2:06 PM Date of : 1935 Age: 84 Room: [facility] Gender: Male Note Status: Finalized Procedure: Upper GI endoscopy Indications: Acute post hemorrhagic anemia, Iron deficiency anemia Providers: Yan Young MD Referring MD: Anupama FERNÁNDEZ Requesting Provider: Medicines: Monitored Anesthesia Care Complications: No immediate complications. Procedure: Pre-Anesthesia Assessment: - Prior to the procedure, a History and Physical was performed, and patient medications and allergies were reviewed. The patient is competent. The risks and benefits of the procedure and the sedation options and risks were discussed with the patient. All questions were answered and informed consent was obtained. Patient identification and proposed procedure were verified by the physician, the nurse and the engine dispatcher in the endoscopy suite. Mental Status Examination: alert and oriented. Airway Examination: normal oropharyngeal airway and neck mobility. Respiratory Examination: clear to auscultation. CV Examination: irregularly irregular rate and rhythm. Prophylactic Antibiotics: The patient does not require prophylactic antibiotics. Prior Anticoagulants: The patient has taken Eliquis (apixaban), last dose was 3 days prior to procedure. ASA Grade Assessment: III - A patient with severe systemic disease. After reviewing the risks and benefits, the patient was deemed in satisfactory condition to undergo the procedure. The anesthesia plan was to use monitored anesthesia care (MAC). Immediately prior to administration of medications, the patient was re-assessed for adequacy to receive sedatives. The heart rate, respiratory rate, oxygen saturations, blood pressure, adequacy of pulmonary ventilation, and response to care were monitored throughout the procedure. The physical status of the patient was re-assessed after the procedure. The Endoscope was introduced through the mouth, and advanced to the second part of duodenum. The upper GI endoscopy was accomplished without difficulty. The patient tolerated the procedure well. Findings: The Z-line was irregular and was found 40 cm from the incisors. The entire examined stomach was normal. The duodenal bulb, first portion of the duodenum and second portion of the duodenum were normal. Impression: - Z-line irregular, 40 cm from the incisors. - Normal stomach. - Normal duodenal bulb, first portion of the duodenum and second portion of the duodenum. - No specimens collected. - No evidence or source of bleeding on upper endoscopy Recommendation: - Discharge patient to home (ambulatory). - Proceed with colonoscopy Yan Young MD Yan Young MD 09/22/2019 3:37:25 PM Electronically signed by Yan Young MD Number of Addenda: 0 Note Initiated On: 09/22/2019 2:06 PM Estimated Blood Loss: Estimated blood loss: none.
--- NOTE | 2019-09-22 15:52 | ROOR ---
Patient Name: Fred Arguelles Procedure Date: 09/22/2019 2:07 PM Date of : 1935 Age: 84 Room: [facility] Gender: Male Note Status: Finalized Procedure: Colonoscopy Indications: Gastrointestinal occult blood loss, Acute post hemorrhagic anemia, Iron deficiency anemia Providers: Yan Young MD Referring MD: Anupama FERNÁNDEZ Requesting Provider: Medicines: Monitored Anesthesia Care Complications: No immediate complications. Procedure: Pre-Anesthesia Assessment: - Prior to the procedure, a History and Physical was performed, and patient medications and allergies were reviewed. The patient is competent. The risks and benefits of the procedure and the sedation options and risks were discussed with the patient. All questions were answered and informed consent was obtained. Patient identification and proposed procedure were verified by the physician, the nurse and the anesthesiologist in the procedure room. Mental Status Examination: alert and oriented. Airway Examination: normal oropharyngeal airway and neck mobility. Respiratory Examination: clear to auscultation. CV Examination: normal. Prophylactic Antibiotics: The patient does not require prophylactic antibiotics. Prior Anticoagulants: The patient has taken Eliquis (apixaban), last dose was 3 days prior to procedure. ASA Grade Assessment: III - A patient with severe systemic disease. After reviewing the risks and benefits, the patient was deemed in satisfactory condition to undergo the procedure. The anesthesia plan was to use monitored anesthesia care (MAC). Immediately prior to administration of medications, the patient was re-assessed for adequacy to receive sedatives. The heart rate, respiratory rate, oxygen saturations, blood pressure, adequacy of pulmonary ventilation, and response to care were monitored throughout the procedure. The physical status of the patient was re-assessed after the procedure. The Colonoscope was introduced through the anus and advanced to the cecum, identified by appendiceal orifice and ileocecal valve. The colonoscopy was technically difficult and complex due to significant looping and a tortuous colon. Successful completion of the procedure was aided by applying abdominal pressure. Findings: Hemorrhoids were found on perianal exam. A fungating partially obstructing medium-sized mass was found at the ileocecal valve. The mass was partially circumferential (involving one-half of the lumen circumference). The mass measured two cm in length. With contact bleeding. This was biopsied with a cold forceps for histology. Estimated blood loss was minimal. Four sessile polyps were found in the transverse colon. The polyps were 5 to 10 mm in size. These polyps were removed with a hot snare. Resection and retrieval were complete. Estimated blood loss was minimal. Two semi-pedunculated polyps were found in the sigmoid colon. The polyps were 10 to 15 mm in size. These polyps were removed with a hot snare. Resection and retrieval were complete. Estimated blood loss: none. A frond-like/villous non-obstructing medium-sized mass was found in the proximal rectum. The mass was partially circumferential (involving one-third of the lumen circumference). The mass measured two cm in length. Contact bleeding. This was biopsied with a cold forceps for histology. Estimated blood loss was minimal. The retroflexed view of the distal rectum and anal verge was normal and showed no anal or rectal abnormalities. Impression: - Hemorrhoids found on perianal exam. 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 Biopsied. - Four 5 to 10 mm polyps in the transverse colon, removed with a hot snare. Resected and retrieved. - Two 10 to 15 mm polyps in the sigmoid colon, removed with a hot snare. Resected and retrieved. - Rule out malignancy, tumor in the proximal rectum. Biopsied. - The distal rectum and anal verge are normal on retroflexion view. Recommendation: - Discharge patient to home (ambulatory). - Resume Eliquis (apixaban) at prior dose tomorrow. Refer to primary physician for further adjustment of therapy. - Refer to Dr. Jules for possible ESD if biopsy of rectal mass is benign at appointment to be scheduled. Yan Young MD Yan Young MD 09/22/2019 3:52:08 PM Electronically signed by Yan Young MD Number of Addenda: 0 Note Initiated On: 09/22/2019 2:07 PM Estimated Blood Loss: Estimated blood loss was minimal.
[2019-09-22 16:00] VITALS: BP 139/65
== END 2019-09-22 16:22 | disposition home or self-care (01) ==
LOC: M OPP 11:18
PROVIDERS: ATTEND Surgery
DX: K56.690 Other partial intestinal obstruction (principal); D49.0 Neoplasm of unspecified behavior of digestive system; K64.8 Other hemorrhoids; K63.5 Polyp of colon; R19.5 Other fecal abnormalities; D62 Acute posthemorrhagic anemia; D50.9 Iron deficiency anemia, unspecified; K22.8 Other specified diseases of esophagus; Z79.899 Other long term (current) drug therapy

== ENCOUNTER → 2019-10-10 | Outpatient (REF) | payer MEDICARE ==
[~2019-10-10] MED LIST changes: -NS 1,000 ML IV ONE
[2019-10-10 13:20] LABS: BASO # 0.1 10^3/uL (0.0-0.2); BASO % 0.5 % (0.0-1.0); EOS % 0.4 % (0.0-3.0); HEMATOCRIT 36.5 % (42.0-52.0); HEMOGLOBIN 10.3 g/dl (13.5-17.5); LYMPH # 1.2 10^3/uL (1.5-5.0); LYMPH % 12.1 % (24.0-44.0); MEAN CORPUSCULAR HEMOGLOBIN 19.3 pg (27.0-33.0); MEAN CORPUSCULAR HGB CONC 28.2 g/dl (32.0-36.5); MEAN CORPUSCULAR VOLUME 68.5 fl (80.0-96.0); MONO # 0.9 10^3/uL (0.0-0.8); MONO % 9.1 % (0.0-5.0); NEUTROPHILS # 7.8 10^3/uL (1.5-8.5); NEUTROPHILS % 77.6 % (36.0-66.0); PLATELET COUNT, AUTOMATED 412 10^3/uL (150-450); RED BLOOD COUNT 5.33 10^6/uL (4.30-6.10); WHITE BLOOD COUNT 10.1 10^3/uL (4.0-10.0)
[2019-10-10 13:28] LABS: ALBUMIN 3.8 GM/DL (3.2-5.2); BILIRUBIN,TOTAL 0.5 MG/DL (0.2-1.0); CALCIUM LEVEL 9.1 MG/DL (8.8-10.2); CREATININE FOR GFR 1.38 MG/DL (0.70-1.30); POTASSIUM SERUM 4.4 MEQ/L (3.5-5.1); TOTAL PROTEIN 7.2 GM/DL (6.4-8.2)
== END ==
LOC: M SFHCPLAZ 11:54
PROVIDERS: ATTEND Physician Assistant Medical
DX: D50.0 Iron deficiency anemia secondary to blood loss (chronic) (principal)

== ENCOUNTER → 2019-10-13 | Outpatient (CLI) | payer MEDICARE ==
[~2019-10-13] MED LIST changes: +ASCO250T20 PO; +GASTROGRAFIN SOLUTION 30ML (Q9963) As Ordered ONE; +GNP45TAB2 PO; +ISOVUE-370 76% 100ML VIAL As Ordered ONE
--- NOTE | 2019-10-13 14:26 | REP ---
REASON FOR EXAM: History of colon carcinoma. The latest prior for comparison is 02/05/2012. CONTRAST: 100 mL Isovue 370. The mediastinum and pulmonary saida are essentially unchanged. There is no mass or adenopathy. No pleural or pericardial effusions. The imaged osseous structures are stable and intact. Evaluation of the lung ricci shows no abnormal nodules, masses, or opacities. IMPRESSION: No evidence of acute disease. Electronically Signed by Grzegorz Justice DO 10/13/2019 02:30 P
--- NOTE | 2019-10-13 14:57 | REP ---
REASON: History of colon carcinoma. The latest prior for comparison is 10/29/2012. CONTRAST: 100 mL Isovue 370. Precontrast enhanced portion of the examination shows no significant change in the appearance of the liver or spleen. There are no choleliths or nephroliths. The contrast enhanced portion of the examination shows the liver, gallbladder, spleen, pancreas, and adrenal glands to be unchanged and again within normal limits. The abdominal aorta and para-aortic regions are unchanged and again seen to be within normal limits. There are bilateral renal cysts. Some have gotten larger and some have gotten smaller compared to the prior exam. There are no enhancing renal masses. No free fluid or free air is seen in the abdomen or pelvis. There is a possible filling defect in the cecum, however, this is at the level of the ileocecal valve and difficult to evaluate by CT. The bowel loops and their mesenteries are otherwise unremarkable and unchanged. There is no free fluid or free air in the abdomen or pelvis. There is no evidence of abdominal or pelvic adenopathy. There is irregular prostatomegaly, which has increased in size compared to the prior exam. This needs to be correlated clinically. Bone window technique through the exam shows no significant change in appearance of the osseous structures. There are spinal degenerative changes status quo. IMPRESSION: No evidence of acute intra-abdominal or intrapelvic disease with the exception of possible findings involving the cecum. This needs to be correlated clinically. Other findings as described above. Electronically Signed by Grzegorz Justice DO 10/13/2019 05:13 P
== END ==
LOC: M RAD 08:57
PROVIDERS: ATTEND Surgery
DX: Z85.038 Personal history of other malignant neoplasm of large intestine (principal)
CPT/HCPCS: 71260; 74178; Q9963; Q9967

== ENCOUNTER → 2019-10-28 | Outpatient (REF) | payer MEDICARE ==
[~2019-10-28] MED LIST changes: -GASTROGRAFIN SOLUTION 30ML (Q9963) As Ordered ONE; -ISOVUE-370 76% 100ML VIAL As Ordered ONE
[2019-11-21 12:56] LABS: HEMATOCRIT 39.4 % (42.0-52.0); HEMOGLOBIN 11.2 g/dl (13.5-17.5); MEAN CORPUSCULAR HEMOGLOBIN 19.7 pg (27.0-33.0); MEAN CORPUSCULAR HGB CONC 28.4 g/dl (32.0-36.5); MEAN CORPUSCULAR VOLUME 69.4 fl (80.0-96.0); PLATELET COUNT, AUTOMATED 382 10^3/uL (150-450); RED BLOOD COUNT 5.68 10^6/uL (4.30-6.10); WHITE BLOOD COUNT 8.7 10^3/uL (4.0-10.0)
[2019-12-01 14:44] LABS: CREATININE FOR GFR 1.22 MG/DL (0.70-1.30); POTASSIUM SERUM 4.3 MEQ/L (3.5-5.1)
== END ==
LOC: M PLALAB 14:57
PROVIDERS: ATTEND Family Medicine
DX: Z01.818 Encounter for other preprocedural examination (principal)

== ENCOUNTER 2019-10-30 07:30 | Inpatient (IN) | payer MEDICARE ==
[~2019-10-30] VITALS: Ht 188 cm; Wt 95.2 kg
[~2019-10-30 07:30] MED LIST changes: +ALVIMOPAN 12 MG CAPSULE (ENTEREG) As Ordered ONE; +ALVIMOPAN 12 MG CAPSULE (ENTEREG) ONE; -ASCO250T20 PO; +BUPIVACAINE HCL 0.25% 30ML VIAL As Ordered ONE; -GNP45TAB2 PO; +HEPARIN SOD (PORCINE) 5000UNITS/ML 1ML VIAL/SYRINGE As Ordered ONE; +HEPARIN SOD (PORCINE) 5000UNITS/ML 1ML VIAL/SYRINGE ONE; +LIDOCAINE 1% SDV 30ML VIAL As Ordered ONE; +LIDOCAINE 2% 100MG/5ML SDV (FOR ANES.) As Ordered ONE; +MIDAZOLAM INJ 2MG/2ML VIAL (J2250 PER 1MG) As Ordered ONE; +ROCURONIUM BROMIDE 50 MG/5 ML VIAL As Ordered ONE; +cefoTEtan INJ 2GM VIAL (S0074 PER 500MG) As Ordered ONE; +cefoTEtan INJ 2GM VIAL (S0074 PER 500MG) ONE; +dexameTHASONE 4 MG/ML 1ML VIAL (J1100 PER 1MG) As Ordered ONE; +fentaNYL 250 MCG/5 ML INJECTION (J3010) As Ordered ONE; +metroNIDAZOLE/NACL 500MG(5MG/ML) 100ML BAG (S0030) As Ordered ONE; +metroNIDAZOLE/NACL 500MG(5MG/ML) 100ML BAG (S0030) ONE; +propofoL 200 MG/20 ML VIAL As Ordered ONE
[2019-10-30] MEDS ORDERED: BUPIVACAINE LIPOSOME/PF 1.3% 20ML VIAL (13.3MG/ML)(EXPAREL)(C9290 PER1MG) As Ordered ONE (08:14)
[2019-10-30] MEDS ORDERED: ePHEDrine SULFATE 25 MG/5 ML(5MG/ML) SYRINGE As Ordered ONE (08:23)
[2019-10-30] MEDS ORDERED: PHENYLephrine HCL 500 MCG/5 ML (100MCG/ML) SYRINGE (J2370) As Ordered ONE (08:24)
[2019-10-30] MEDS ORDERED: ROCURONIUM BROMIDE 50 MG/5 ML VIAL As Ordered ONE ×2 (09:00→13:20)
[2019-10-30] MEDS ORDERED: ACETAMINOPHEN 1000MG 100ML IV BTL (OFIRMEV) (J0131 PER 10MG) As Ordered ONE (09:05)
[2019-10-30] MEDS ORDERED: SUGAMMADEX SODIUM 500 MG/5 ML VIAL (BRIDION) As Ordered ONE (09:08)
[2019-10-30] MEDS ORDERED: HYDROmorphone HCL 2 MG/ML 1ML VIAL (J1170) As Ordered ONE (09:09)
[2019-10-30] MEDS ORDERED: cefoTEtan INJ 1GM VIAL (S0074 PER 500MG) ONE (10:54)
[2019-10-30] MEDS ORDERED: ALVIMOPAN 12 MG CAPSULE (ENTEREG) ONE (10:55)
[2019-10-30] MEDS ORDERED: ONDANSETRON 4MG/2ML VIAL As Ordered ONE (11:35)
[2019-10-30] MEDS ORDERED: cefoTEtan INJ 1GM VIAL (S0074 PER 500MG) As Ordered ONE (15:12)
[2019-10-30] MEDS ORDERED: fentaNYL 100 MCG/2 ML INJECTION (J3010) As Ordered ONE (18:15)
[2019-10-30] MEDS ORDERED: fentaNYL 100 MCG/2 ML INJECTION (J3010) ONE (18:15)
[2019-10-30] MEDS ORDERED: metroNIDAZOLE/NACL 500MG(5MG/ML) 100ML BAG (S0030) ONE (21:47)
[2019-10-30] MEDS ORDERED: KETOROLAC 30 MG/ML 1ML VIAL As Ordered ONE (21:47)
[2019-10-30] MEDS ORDERED: **hydrALAZINE** 50 MG TAB ONE (21:47)
[2019-10-30] MEDS ORDERED: KETOROLAC 30 MG/ML 1ML VIAL ONE (21:47)
[2019-10-30] MEDS ORDERED: **hydrALAZINE** 50 MG TAB As Ordered ONE (21:48)
[2019-10-30] MEDS ORDERED: metroNIDAZOLE/NACL 500MG(5MG/ML) 100ML BAG (S0030) As Ordered ONE (23:03)
[2019-10-31] MEDS ORDERED: KETOROLAC 30 MG/ML 1ML VIAL As Ordered ONE ×4 (03:30→20:26)
[2019-10-31] MEDS ORDERED: KETOROLAC 30 MG/ML 1ML VIAL ONE ×4 (03:30→20:26)
[2019-10-31] MEDS ORDERED: metroNIDAZOLE/NACL 500MG(5MG/ML) 100ML BAG (S0030) ONE ×2 (06:15→15:25)
[2019-10-31] MEDS ORDERED: metroNIDAZOLE/NACL 500MG(5MG/ML) 100ML BAG (S0030) As Ordered ONE ×2 (06:15→15:25)
[2019-10-31] MEDS ORDERED: ENOXAPARIN 40MG/0.4ML SYRINGE (J1650 PER 10MG) ONE (08:56)
[2019-10-31] MEDS ORDERED: LOSARTAN 50MG TABLET ONE (08:56)
[2019-10-31] MEDS ORDERED: **hydrALAZINE** 50 MG TAB ONE ×2 (08:56→20:26)
[2019-10-31] MEDS ORDERED: OMEPRAZOLE 20 MG CAP ONE (08:56)
[2019-10-31] MEDS ORDERED: PRAVASTATIN 20 MG TAB ONE (08:56)
[2019-10-31] MEDS ORDERED: **hydrALAZINE** 50 MG TAB As Ordered ONE ×2 (08:57→20:26)
[2019-10-31] MEDS ORDERED: PRAVASTATIN 20 MG TAB As Ordered ONE (08:57)
[2019-10-31] MEDS ORDERED: OMEPRAZOLE 20 MG CAP As Ordered ONE (08:58)
[2019-10-31] MEDS ORDERED: LOSARTAN 50MG TABLET As Ordered ONE (08:58)
[2019-10-31] MEDS ORDERED: ENOXAPARIN 40MG/0.4ML SYRINGE (J1650 PER 10MG) As Ordered ONE (08:58)
[2019-10-31] MEDS ORDERED: diltiaZEM **CD** 180 MG CAP As Ordered ONE (09:01)
[2019-10-31] MEDS ORDERED: diltiaZEM **CD** 180 MG CAP ONE (09:01)
[2019-10-31] MEDS ORDERED: ALVIMOPAN 12 MG CAPSULE (ENTEREG) ONE (11:00)
[2019-11-01] MEDS ORDERED: KETOROLAC 30 MG/ML 1ML VIAL As Ordered ONE ×3 (03:06→20:05)
[2019-11-01] MEDS ORDERED: OMEPRAZOLE 20 MG CAP As Ordered ONE (09:59)
[2019-11-01] MEDS ORDERED: LOSARTAN 50MG TABLET As Ordered ONE (10:00)
[2019-11-01] MEDS ORDERED: ENOXAPARIN 40MG/0.4ML SYRINGE (J1650 PER 10MG) As Ordered ONE (10:00)
[2019-11-01] MEDS ORDERED: PRAVASTATIN 20 MG TAB As Ordered ONE (10:00)
[2019-11-01] MEDS ORDERED: PRAVASTATIN 10 MG TAB As Ordered ONE (10:14)
[2019-11-01] MEDS ORDERED: SODIUM CHLORIDE 0.9% 250ML As Ordered ONE (10:59)
[2019-11-01] MEDS ORDERED: **hydrALAZINE** 50 MG TAB As Ordered ONE ×2 (10:59→20:07)
[2019-11-01] MEDS ORDERED: PERCOCET 5MG/325MG TAB As Ordered ONE (16:47)
[2019-11-01] MEDS ORDERED: diltiaZEM **CD** 180 MG CAP As Ordered ONE (16:53)
[2019-11-02] MEDS ORDERED: KETOROLAC 30 MG/ML 1ML VIAL As Ordered ONE ×4 (02:32→20:49)
[2019-11-02] MEDS ORDERED: OMEPRAZOLE 20 MG CAP As Ordered ONE (08:06)
[2019-11-02] MEDS ORDERED: PRAVASTATIN 10 MG TAB As Ordered ONE (08:07)
[2019-11-02] MEDS ORDERED: diltiaZEM **CD** 180 MG CAP As Ordered ONE (08:07)
[2019-11-02] MEDS ORDERED: LOSARTAN 50MG TABLET As Ordered ONE (08:07)
[2019-11-02] MEDS ORDERED: ENOXAPARIN 40MG/0.4ML SYRINGE (J1650 PER 10MG) As Ordered ONE (08:07)
[2019-11-02] MEDS ORDERED: **hydrALAZINE** 50 MG TAB As Ordered ONE ×2 (08:07→20:49)
[2019-11-03] MEDS ORDERED: PRAVASTATIN 20 MG TAB As Ordered ONE (09:25)
[2019-11-03] MEDS ORDERED: OMEPRAZOLE 20 MG CAP As Ordered ONE (09:25)
[2019-11-03] MEDS ORDERED: ENOXAPARIN 40MG/0.4ML SYRINGE (J1650 PER 10MG) As Ordered ONE (09:26)
[2019-11-03] MEDS ORDERED: LOSARTAN 50MG TABLET As Ordered ONE (09:26)
[2019-11-03] MEDS ORDERED: **hydrALAZINE** 50 MG TAB As Ordered ONE ×2 (09:26→20:03)
[2019-11-03] MEDS ORDERED: diltiaZEM **CD** 180 MG CAP As Ordered ONE (09:29)
[2019-11-03] MEDS ORDERED: POTASSIUM CHLORIDE 10 MEQ SR TABLET As Ordered ONE (09:51)
[2019-11-03] MEDS ORDERED: FUROSEMIDE 40 MG TAB As Ordered ONE (09:54)
[2019-11-03] MEDS ORDERED: ALVIMOPAN 12 MG CAPSULE (ENTEREG) ONE (12:06)
[2019-11-03] MEDS ORDERED: zolPIDEM TARTRATE 5 MG TAB As Ordered ONE (20:03)
[2019-11-04] MEDS ORDERED: FUROSEMIDE 40 MG TAB As Ordered ONE (09:17)
[2019-11-04] MEDS ORDERED: POTASSIUM CHLORIDE 10 MEQ SR TABLET As Ordered ONE (09:17)
[2019-11-04] MEDS ORDERED: OMEPRAZOLE 20 MG CAP As Ordered ONE (09:17)
[2019-11-04] MEDS ORDERED: **hydrALAZINE** 50 MG TAB As Ordered ONE ×2 (09:18→22:48)
[2019-11-04] MEDS ORDERED: diltiaZEM **CD** 180 MG CAP As Ordered ONE (09:18)
[2019-11-04] MEDS ORDERED: PRAVASTATIN 10 MG TAB As Ordered ONE (09:18)
[2019-11-04] MEDS ORDERED: LOSARTAN 50MG TABLET As Ordered ONE (09:18)
[2019-11-04] MEDS ORDERED: ENOXAPARIN 40MG/0.4ML SYRINGE (J1650 PER 10MG) As Ordered ONE (09:18)
[2019-11-04] MEDS ORDERED: MOM 30ML SUSPENSION UDC As Ordered ONE (17:53)
[2019-11-04] MEDS ORDERED: zolPIDEM TARTRATE 5 MG TAB As Ordered ONE (22:48)
[2019-11-04] MEDS ORDERED: BISACODYL 10 MG SUPP As Ordered ONE (23:05)
[2019-11-04] MEDS ORDERED: KETOROLAC 30 MG/ML 1ML VIAL As Ordered ONE (23:39)
[2019-11-05] MEDS ORDERED: POTASSIUM CHLORIDE 10 MEQ SR TABLET As Ordered ONE (09:43)
[2019-11-05] MEDS ORDERED: OMEPRAZOLE 20 MG CAP As Ordered ONE (09:43)
[2019-11-05] MEDS ORDERED: PRAVASTATIN 20 MG TAB As Ordered ONE (09:43)
[2019-11-05] MEDS ORDERED: **hydrALAZINE** 50 MG TAB As Ordered ONE ×2 (09:44→21:21)
[2019-11-05] MEDS ORDERED: LOSARTAN 50MG TABLET As Ordered ONE (09:44)
[2019-11-05] MEDS ORDERED: FUROSEMIDE 40 MG TAB As Ordered ONE (09:44)
[2019-11-05] MEDS ORDERED: APIXABAN 5 MG TAB (ELIQUIS) As Ordered ONE ×2 (09:45→21:21)
[2019-11-05] MEDS ORDERED: diltiaZEM **CD** 180 MG CAP As Ordered ONE (09:53)
[2019-11-05] MEDS ORDERED: ALVIMOPAN 12 MG CAPSULE (ENTEREG) ONE (13:00)
[2019-11-05] MEDS ORDERED: KETOROLAC 30 MG/ML 1ML VIAL As Ordered ONE (21:19)
[2019-11-05] MEDS ORDERED: zolPIDEM TARTRATE 5 MG TAB As Ordered ONE (21:21)
[2019-11-06] MEDS ORDERED: OMEPRAZOLE 20 MG CAP As Ordered ONE (10:15)
[2019-11-06] MEDS ORDERED: POTASSIUM CHLORIDE 10 MEQ SR TABLET As Ordered ONE (10:15)
[2019-11-06] MEDS ORDERED: FUROSEMIDE 40 MG TAB As Ordered ONE (10:16)
[2019-11-06] MEDS ORDERED: **hydrALAZINE** 50 MG TAB As Ordered ONE ×2 (10:16→20:53)
[2019-11-06] MEDS ORDERED: APIXABAN 5 MG TAB (ELIQUIS) As Ordered ONE (10:16)
[2019-11-06] MEDS ORDERED: PRAVASTATIN 10 MG TAB As Ordered ONE (10:16)
[2019-11-06] MEDS ORDERED: diltiaZEM **CD** 180 MG CAP As Ordered ONE (10:16)
[2019-11-06] MEDS ORDERED: LOSARTAN 50MG TABLET As Ordered ONE (10:16)
[2019-11-06] MEDS ORDERED: FERROUS GLUCONATE 324 MG TAB As Ordered ONE (14:24)
[2019-11-06] MEDS ORDERED: DOCUSATE SODIUM 100 MG CAP As Ordered ONE (20:53)
[2019-11-07] MEDS ORDERED: OMEPRAZOLE 20 MG CAP As Ordered ONE (08:40)
[2019-11-07] MEDS ORDERED: PRAVASTATIN 20 MG TAB As Ordered ONE (08:40)
[2019-11-07] MEDS ORDERED: LOSARTAN 50MG TABLET As Ordered ONE (08:41)
[2019-11-07] MEDS ORDERED: FERROUS GLUCONATE 324 MG TAB As Ordered ONE (08:41)
[2019-11-07] MEDS ORDERED: FUROSEMIDE 40 MG TAB As Ordered ONE (08:41)
[2019-11-07] MEDS ORDERED: **hydrALAZINE** 50 MG TAB As Ordered ONE (08:41)
[2019-11-07] MEDS ORDERED: diltiaZEM **CD** 180 MG CAP As Ordered ONE (08:43)
[2019-11-07] MEDS ORDERED: POTASSIUM CHLORIDE 10 MEQ SR TABLET As Ordered ONE (09:00)
[2019-11-07] MEDS ORDERED: APIXABAN 5 MG TAB (ELIQUIS) As Ordered ONE (10:28)
[2019-12-05 04:59] LABS: BASO % 0.1 % (0.0-1.0); HEMOGLOBIN 10.1 g/dl (13.5-17.5); LYMPH # 0.7 10^3/uL (1.5-5.0); MEAN CORPUSCULAR HEMOGLOBIN 19.9 pg (27.0-33.0); MEAN CORPUSCULAR HGB CONC 28.1 g/dl (32.0-36.5); MEAN CORPUSCULAR VOLUME 70.9 fl (80.0-96.0); MONO # 0.9 10^3/uL (0.0-0.8); MONO % 6.3 % (0.0-5.0); NEUTROPHILS # 12.2 10^3/uL (1.5-8.5); NEUTROPHILS % 88.2 % (36.0-66.0); PLATELET COUNT, AUTOMATED 371 10^3/uL (150-450); RED BLOOD COUNT 5.08 10^6/uL (4.30-6.10); WHITE BLOOD COUNT 13.8 10^3/uL (4.0-10.0)
[2019-12-24 09:35] LABS: HEMOGLOBIN 8.4 g/dl (13.5-17.5); MEAN CORPUSCULAR HEMOGLOBIN 19.3 pg (27.0-33.0); PLATELET COUNT, AUTOMATED 290 10^3/uL (150-450); RED BLOOD COUNT 4.35 10^6/uL (4.30-6.10); WHITE BLOOD COUNT 11.3 10^3/uL (4.0-10.0)
[2020-01-03 08:45] LABS: BASO % 0.4 % (0.0-1.0); EOS # 0.3 10^3/uL (0.0-0.5); EOS % 3.3 % (0.0-3.0); HEMATOCRIT 30.3 % (42.0-52.0); HEMOGLOBIN 8.9 g/dl (13.5-17.5); LYMPH # 0.9 10^3/uL (1.5-5.0); MEAN CORPUSCULAR HEMOGLOBIN 19.7 pg (27.0-33.0); MEAN CORPUSCULAR HGB CONC 29.4 g/dl (32.0-36.5); MEAN CORPUSCULAR VOLUME 67.2 fl (80.0-96.0); NEUTROPHILS # 5.9 10^3/uL (1.5-8.5); NEUTROPHILS % 72.8 % (36.0-66.0); PLATELET COUNT, AUTOMATED 418 10^3/uL (150-450); RED BLOOD COUNT 4.51 10^6/uL (4.30-6.10); WHITE BLOOD COUNT 8.1 10^3/uL (4.0-10.0)
[2020-01-03 11:06] LABS: BASO % 0.5 % (0.0-1.0); EOS # 0.2 10^3/uL (0.0-0.5); EOS % 3.2 % (0.0-3.0); HEMATOCRIT 30.9 % (42.0-52.0); HEMOGLOBIN 9.1 g/dl (13.5-17.5); LYMPH % 13.7 % (24.0-44.0); MEAN CORPUSCULAR HEMOGLOBIN 19.8 pg (27.0-33.0); MEAN CORPUSCULAR HGB CONC 29.4 g/dl (32.0-36.5); MEAN CORPUSCULAR VOLUME 67.3 fl (80.0-96.0); MONO # 0.9 10^3/uL (0.0-0.8); MONO % 11.9 % (0.0-5.0); NEUTROPHILS # 5.3 10^3/uL (1.5-8.5); PLATELET COUNT, AUTOMATED 438 10^3/uL (150-450); RED BLOOD COUNT 4.59 10^6/uL (4.30-6.10); WHITE BLOOD COUNT 7.6 10^3/uL (4.0-10.0)
--- NOTE | 2020-01-08 10:18 | RO ---
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 Procedure: Robotic-assisted laparoscopic right colectomy, robotic-assisted laparoscopic low anterior resection with anastomosis. Surgeon: Yan Young MD Assistants: Sam Sterling DO and Linda Terry SHOWER DOORS AND PANELS FABRICATOR. Dr. Sterling assisted me with intraoperative flexible sigmoidoscopy, marking of the tubulovillous adenoma location as well as with performing the proctocolic anastomosis and extraction of the specimen and closure of incisions. Harrison assisted me with placement of ports, instrument of the robotic instruments, retraction on the field while I was at the surgeons console. Anesthesia: General endotracheal anesthesia. Estimated blood loss: 500 mL Drains: 19 Alberto drain placed in the pelvis. Complications: None. The patient was extubated and brought to the recovery room in stable condition. Procedure note: Mr. Ceron is a 58-year-old gentleman who was admitted about a month ago with GI bleed and was found to have malignancy in his ascending colon, also concomitant large tubulovillous adenoma at 15-20 cm from the anal verge which turned out that this has been twice removed in a prior EMR done in [place] in 2018. After discussion with our gameplay programmer, it was recommended to have this surgically removed. The patient received cefotetan 2 gm IV as well as metronidazole 500 mg IV preoperatively. The cefotetan was redosed at five hours. He also got 5000 units of heparin subcu for DVT prophylaxis as well as given Entereg 12 mg p.o. for prevention of postoperative ileus. Description of Operation: He was brought to the operating room, placed initially supine on the table. Compression boots placed on both lower extremities for DVT prophylaxis. General endotracheal anesthesia was started. He was then placed on Indra stirrups in lithotomy position. A Parker catheter was placed. He was positioned that the pressure points are well padded and protected. The table as tested for severe Trendelenburg tilt. His abdomen, perineal area was then prepped and draped in the usual sterile fashion. A surgical timeout was performed prior to the start of the procedure. We began by entering the abdomen by a Veress needle technique at the left upper quadrant area. CO2 insufflation started to a pressure of 15 mmHg. We then placed our ports to set up diagonally over the left upper quadrant going towards the right lower quadrant area. An 8 mm port was placed sequentially over the umbilical area, left midclavicular area and left upper quadrant area 8-10 cm apart in an oblique direction and a 12 mm port was placed 2 cm medially to the right anterior-superior iliac spine and another 8 mm port placed suprapubically where we planned to extract later on. He was placed on a 15-degree Trendelenburg. The robotic power was then positioned obliquely over the patients left side and the robotic arms and trocar were docked to the robot after setting up the instruments. I then unscrubbed to control of the camera and instruments at the surgeons console while my assistants remained on the field for management of the robot, trocars and instruments. The small bowel was retracted out of place, revealing the bulky right colic mesentery. the colon was tilted up and initially tried a medial to lateral approach. There was some difficulty maintaining view over the right colic mesentery due to the bulkiness of the mesentery. Thus, I switched to a lateral approach. I freed up the appendix which was adherent to the right para-abdominal wall and likewise took down the lateral and retroperitoneal attachments of the terminal ileum to free up the cecum and ascending colon laterally full range of motion its attachments along the line of Toldt, freeing this up from the Gerotas fascia, proceeding to the hepatic flexure. I then proceeded in a mesocolic approach, dividing the omental attachments to the mid-transverse colon, proceeding towards the right side to the hepatic flexure, freeing up the gastrocolic ligament and hepatoduodenal ligament and its attachments to the lateral abdominal wall, completing the lateral dissection. This allowed me to further retract the right colon and its mesentery. My initial approach actually was closer and there was still a good amount of ileocolic pedicle that I followed. The ileocolic pedicle was taken with a vessel sealer device and we proceeded freeing the mesentery off the retroperitoneal attachments along the Toldts fascia, identifying the duodenal sweep and freeing this away from the mesenteric attachments. The mesentery was divided, proceeding upwards. The right branch of the middle colic artery was identified and this was divided, proceeding towards the transverse colon. Perfusion testing was done to make sure there was adequate perfusion at the chosen transection point at the transverse colon. After this was done, likewise the transverse colon was divided with 45 mm stapler with a blue load. The rest of the attachments of the right colon was then divided and this was temporarily left in place on top of the liver. The ends of the small bowel and transverse colon were arranged so as to be able to perform an isoperistaltic anastomosis. A stay suture was placed in between the small bowel and the colon for traction. An enterocolotomy was then made and a [id number]-cs-swla anastomosis was performed with 45 mm stapler with a blue load. After checking the hemostasis for bleeding, this was then closed with a 3-0 V- Loc in a running fashion. A separate 3-0 V-Loc was then used coming superiorly to inferiorly in a Lembert fashion for second layer of sutures. I tested the anastomosis underwater and was satisfied that there was no gross leakage. At this point, the right colic resection was terminated. The robot was undocked and we swung the boom to perform for a low anterior resection. The patient was placed in a steeper Trendelenburg position at about 20 degrees. The robotic arms were docked to the robot once more and the instruments then placed back in. Again, the bowels were retracted away from the pelvis. He actually has a very floppy sigmoid colon. I started dividing the lateral attachments of the sigmoid colon upwards towards the descending colon and then towards the rectum. After sufficiently performed a lateral dissection, a medial dissection was then started, identifying the superior hemorrhoidal vessel and following this to the ALBERTA. We continued dissection to the rectum, getting into the retrorectal space, bluntly dissecting the rectum. I did not have any external marking on the location of the tubulovillous adenoma as I asked Dr. Sterling to perform a flexible sigmoidoscopy. The tubulovillous adenoma was identified at 15 cm and this was marked with ICG. This was visible through Firefly and dissection proceeded distally past the marked area roughly 2 cm from the tubulovillous adenoma. The mesentery was circumferentially freed up from the surrounding structures and the rectum was then divided with three firings of 45 mm stapler with a green load. We proceeded dissecting proximally and the ALBERTA was then divided with a vessel sealer. We chose an area at just about the level of the ALBERTA to transect the sigmoid colon. I further dissected medially and just with this dissection, we could get the end of the sigmoid/descending colon to the rectal stump adequately without tension. I had Miss Terry place a 28 mm EEA stapler into the abdomen. The staple line was divided. The colon turned out to be much narrower and I set it up for an end-to-side anastomosis with the anvil coming out roughly about 5 cm from the edge of the colon at one of the tenia coli and the colotomy was closed with another firing of a 45 mm stapler with a blue load. Dr. Sterling then came down and transanally we placed the other end of the EEA stapler. The spike was deployed and the EEA stapler was assembled. The orientation for the colon was checked and this was fired and the donuts were checked and noted to be intact on both ends. A flexible sigmoidoscopy was performed and the stapled lines were visualized. No bleeding was noted. Perfusion testing was done with ICG, noted to be adequate. A leak test was performed underwater. No leakage was noted. At this point, I scrubbed back in. Likewise, Dr. Sterling scrubbed in with me. The robot was undocked. The patients Trendelenburg position was lessened. We extracted through the suprapubic port. This was enlarged with a small short Pfannenstiel incision. A small Francis retractor was placed and both the right colon and rectosigmoid that was resected was extracted. While extracting, there was some leakage of stool in the abdomen. As I was concerned that there might be an injury, I performed a laparoscopy by temporarily closing the Francis retractor and resuming pneumoperitoneum, re-ran the bowel and suctioned off all visible leakage that was seen. There was no bowel injury noted and on examination of our specimen, there was a leak on the stapled end of the transverse colon. At this point, we irrigated the abdomen, suctioned off all visible irrigant and I left a 19 Alberto to monitor the end-to-end proctocolic anastomosis. The abdomen was deflated. All ports were removed. The Pfannenstiel incision was closed using 1 Vicryl in a mattress fashion. All skin incisions were closed with skin francisco and the drain was secured to the skin with 2-0 Vicryl. The patient tolerated the procedure well. He was promptly awakened, extubated and brought to the recovery room in a stable condition. JASMINA
--- NOTE | 2020-01-09 15:18 | DS ---
DATE OF ADMISSION: 10/30/2019 DATE OF DISCHARGE: 11/07/2019 DISCHARGE DIAGNOSES: * Ascending colon malignancy. * Large tubulovillous adenoma at the rectum at 15 cm. * History of atrial fibrillation. * Hypertension. DISCHARGE DIAGNOSES: * Ascending colon malignancy status post robotic-assisted laparoscopic right colectomy. Final pathology is T3 N0 M0. * Tubulovillous with dysplasia status post robotic-assisted laparoscopic lower anterior resection. * Hypertension, stable. * Atrial fibrillation, stable back on Eliquis. HISTORY OF PRESENT ILLNESS: Mr. Ceron was brought in electively for a planned robotic-assisted laparoscopic right colectomy combined with laparoscopic anterior resection for two separate lesions on his colon, as described above. HOSPITAL COURSE: The patient underwent surgery and was stable throughout the procedure. The surgery itself did take about eight hours to complete. He was successfully extubated and admitted to the hospital for ongoing care. A Alberto drain was left in place for monitoring of the lower anterior resection to pelvis. He was started on clear liquids, but he was not really tolerating this the first three to four days. He continued to have abdominal distention and he was kept on Entereg. He was requiring minimal narcotics. We engaged him with physical therapy and he was ambulating with a walker and just over all, he was slow to improve in terms of his bowel function. He had evidence for postoperative ileus. He started having some bowel function at about postop day five and his diet was slowly advanced, which he eventually tolerated. Otherwise, he received a few days of antibiotics due to intraoperative spillage of colon contents. He was resumed on Eliquis once he started tolerating diet at about postop day six. His discharge at postop day eight close to his baseline. DISCHARGE INSTRUCTIONS: * Diet - Low residue diet. * Activity - Light activity advanced as tolerated. * Wound care - Patient may shower, pat incisions dry. Keep dressing and change as needed on the drain site to the left upper quadrant area. When dry, may leave open to air. * Follow-up In my clinic in two weeks. Follow-up with primary care doctor clinic in one months time. DISCHARGE MEDICATIONS: HOME MEDICATIONS - * Losartan 50 mg daily. * Pravastatin 10 mg daily. * Omeprazole 20 mg daily. * Potassium chloride 10 mg daily. * Furosemide 40 mg daily. * Hydralazine 50 mg b.i.d. * Eliquis 5 mg b.i.d. * Diltiazem hydrochloride ER 180 mg daily. NEW MEDICATIONS 9. Colace 100 mg tablet at bedtime. 10. [id number] Tylenol or MTDD
--- NOTE | 2020-01-10 07:45 | IPN ---
DATE: 11/01/2019 HOSPITAL COURSE: The patient is an 84-year-old male, postop from robotic right and left hemicolectomy from . He still has a Parker catheter in place, as well as a Alberto drain. He is tolerating liquid diet, but claims he has not been drinking very large amounts. Denies any flatus or bowel movements at this point. No nausea or vomiting and his abdomen is slightly distended. Other than that, he has not had any complaints. Vitals are stable, afebrile LABORATORY: Pending. PHYSICAL EXAMINATION: Abdomen is soft, slightly distended, diffuse tenderness throughout. No rebounding or guarding. Alberto drain with serosanguinous output. ASSESSMENT AND PLAN: The patient again is an 84-year-old male, postoperative day 2, status post robotic left and right hemicolectomy. He is doing well and does have a slight bump in creatinine and poor urine output. I recommend a 500 cc bolus for today. I am also concerned that he may be developing some early signs of an ileus. His abdomen is distended. He denies nausea or vomiting at this time, but he is also not passing any flatus. I recommend that he continue with clear liquid diet now, slowly advance his diet once he starts passing flatus. If he starts to have any problems with nausea or vomiting, will place an NG tube for decompression. Once he is passing flatus, will advance his diet as appropriate and go from there. [facility]
--- NOTE | 2020-01-10 07:48 | IPN ---
DATE: 11/02/2019 No acute events overnight. Patient is not eating or drinking very much because he is still having significant abdominal distention. His urine output has improved, but it is still pretty dark, but his creatinine has come back to normal. Other than his continued abdominal distention, he denies any nausea or vomiting. No fevers or chills overnight. He denies passing any gas, but he says he is having bowel movements. His abdomen is soft, but it is very distended, mild tenderness to palpation diffusely. No rebound or guarding and no rigidity. RECOMMENDATIONS: At this time, is to continue with current therapy. I am hesitant to advance his diet with him being so distended. We will keep him on IV fluids. I will discontinue the Parker. Recommend that he continue to ambulate as much as possible. Once he is passing more flatus and his abdomen is decompressed, then we will advance his diet and plan for discharge home shortly afterwards. JASMINA
--- NOTE | 2020-01-10 07:50 | IPN ---
DATE: 11/05/2019 SUBJECTIVE: Patient is seen sitting up in his chair, looks comfortable. He reports was able to sleep better last night. He reports passing more flatus and had one episode of loose stool this morning. He was able to tolerate bananas, rice, applesauce, toast (BRAT) diet, but reports he is not feeling hungry, but denies any nausea or vomiting. OBJECTIVE: On examination, he looks comfortable. Abdomen still markedly distended but appears much better than it was the past few days, a lot softer. He has some mild tenderness over the right lower quadrant port, which is a 12 mm port, and also slightly over the left lower quadrant where he had subcutaneous bruising. Otherwise, all his incisions have francisco and are clean, dry, and intact. Joe-Butterfield (KRISHAN) drain is slight pink, serosanguinous in character. He has some mild extremity edema that is persistent. Labs are not available, but his labs yesterday showed a white cell count of 9.1, electrolytes are within acceptable range. IMPRESSION: He is now postoperative day #6 following a combined right colectomy and low anterior resection. I have discussed with him his final pathology results which was relayed to me by our pathologist. Essentially, he has a T3N0M0 ascending colon adenocarcinoma which puts him at stage 2A, and large tubulovillous rectal adenoma. He also is having a postoperative ileus which seems to be improving. PLAN: Joe-Butterfield (KRISHAN) drain will be discontinued today. I encouraged him to continue to work with physical therapy to strengthen him, also do incentive spirometers. I will keep him still on Entereg, though he is not taking much narcotics. I will resume his Eliquis and discontinue the Lovenox. His KRISHAN drain will be discontinued. I anticipate within the next 24-48 hours we will be able to discharge him home depending on how he tolerates his diet and how his bowel function continues to improve. JASMINA
[2020-01-11 14:34] LABS: BASO % 0.4 % (0.0-1.0); EOS # 0.1 10^3/uL (0.0-0.5); EOS % 1.2 % (0.0-3.0); HEMATOCRIT 31.3 % (42.0-52.0); HEMOGLOBIN 9.1 g/dl (13.5-17.5); LYMPH # 0.6 10^3/uL (1.5-5.0); MEAN CORPUSCULAR HEMOGLOBIN 19.7 pg (27.0-33.0); MEAN CORPUSCULAR HGB CONC 29.1 g/dl (32.0-36.5); MEAN CORPUSCULAR VOLUME 67.6 fl (80.0-96.0); MONO # 1.1 10^3/uL (0.0-0.8); MONO % 12.3 % (0.0-5.0); NEUTROPHILS # 7.2 10^3/uL (1.5-8.5); NEUTROPHILS % 78.8 % (36.0-66.0); PLATELET COUNT, AUTOMATED 404 10^3/uL (150-450); RED BLOOD COUNT 4.63 10^6/uL (4.30-6.10); WHITE BLOOD COUNT 9.1 10^3/uL (4.0-10.0)
--- NOTE | 2020-01-15 08:20 | IPN ---
DATE: 11/04/2019 Patient is seen this morning. He reports passing a little flatus just once this morning and had a small, soft formed stool, but still is mildly uncomfortable due to abdominal distention. I reviewed his x-ray with him yesterday and it shows a generalized ileus, no free air. His labs were taken this morning and not available yet. He denies any nausea, but feels bloated. He is ambulating. He is doing incentive spirometers. Review of his vital signs shows he is afebrile, heart rate slightly up at 100, blood pressure of 165/80, oxygen saturation 96% on room air. On examination, he is seen sitting up on the chair, appears relatively comfortable, has the above complaints, but otherwise feels comfortable. Skin is warm and dry. No obvious jugular venous distention. Lung sounds are clear to auscultation bilaterally without wheezing. Heart rhythm is regular, heart rate is anywhere from 90-100, no murmurs. Abdomen remains moderately distended but soft. Minimally tender at the right lower quadrant area and also at the left upper quadrant Joe-Butterfield (KRISHAN) drain site. No rebound or guarding. Tympanic to percussion and hypoactive bowel sounds. KRISHAN drain has slight serosanguinous fluid drainage. IMPRESSION AND PLAN: He is now postoperative day #6 following right colectomy for adenocarcinoma and low anterior resection for tubulovillous adenoma. I reviewed the pathology with our pathologist yesterday and relayed to him the results. It seems to be a T3N0M0 lesion, putting him at stage 2 and a tubulovillous adenoma for the rectal adenoma. PLAN: He still has a postoperative ileus, may be resolving. He should continue ambulating. I will give him a single dose of a Dulcolax suppository as well as Milk of Magnesia to try to elicit some movement. I will put him on a full liquid diet and add some bananas, rice, applesauce, toast (BRAT) diet to that and see how he tolerates this. He continues on Entereg and all his home medications have been placed. His Eliquis is still on hold. He has Lovenox for deep venous thrombosis (DVT) prophylaxis. [facility]ITAL[facility]
--- NOTE | 2020-01-15 08:21 | IPN ---
DATE: 11/06/2019 SUBJECTIVE: Patient reports feeling better. He is able to tolerate soft foods and has had two semi-formed bowel movements this morning. He also reports passing more flatus now. He has been ambulating independently with a walker. He denies any shortness of breath, chest pain, abdominal discomfort. Vital signs were reviewed from the chart and noted to be stable, non- tachycardic. On examination, he is seen sitting up in the chair. Looks much more comfortable. No jugular venous distention. Lung sounds are clear to auscultation bilaterally without wheezing. Heart rate and rhythm regular without murmurs. Abdomen: still remains slightly rounded and mildly distended but a lot softer than it has been the past few days. His Joe-Butterfield drain has already been removed. He has several port site incisions as well as a short Pfannenstiel incision for the extraction site, all with francisco and are clean, dry, and intact. Previous right lower quadrant tenderness is no longer present. Likewise, previous left lower quadrant tenderness is also gone. Minimal lower extremity edema. Today's labs are not available. Yesterday's labs show a white cell count of 8.3, mg 8.9. IMPRESSION AND PLAN: He is now postoperative day #7 following a combined robotic-assisted right colectomy for a T2N0M0 adenocarcinoma, ascending colon, and low anterior resection for nonendoscopically resectable 15 cm tubular venous adenoma. He continues to do better. We will advance him to a low-residue diet today. I will also add some stool softeners to his daily regimen. His Entereg will be discontinued after the doses today. He is encouraged to continue to ambulate through the hallways and perform incentive spirometry. I have added ferrous gluconate to address his anemia. I anticipate most like he should be ready to go home by tomorrow. JASMINA
[2020-01-15] MEDS ORDERED: GNP45TAB2 PO (13:29)
[2020-01-15] MEDS ORDERED: ASCO250T20 PO (13:29)
[2020-01-24 10:06] LABS: CALCIUM LEVEL 8.2 MG/DL (8.8-10.2); CREATININE FOR GFR 1.58 MG/DL (0.70-1.30); GLOMERULAR FILTRATION RATE 44.5 (>35); POTASSIUM SERUM 4.3 MEQ/L (3.5-5.1)
[2020-01-26 16:41] LABS: BLOOD UREA NITROGEN 6 MG/DL (7-18); CALCIUM LEVEL 8.6 MG/DL (8.8-10.2); CARBON DIOXIDE LEVEL 34 MEQ/L (21-32); CHLORIDE LEVEL 104 MEQ/L (98-107); CREATININE FOR GFR 0.76 MG/DL (0.70-1.30); GLOMERULAR FILTRATION RATE > 60.0 (>35); GLUCOSE, FASTING 92 MG/DL (70-100); SODIUM LEVEL 141 MEQ/L (136-145)
[2020-01-27 11:47] LABS: BLOOD UREA NITROGEN 8 MG/DL (7-18); CREATININE FOR GFR 0.65 MG/DL (0.70-1.30); GLUCOSE, FASTING 83 MG/DL (70-100)
[2020-01-27 11:48] LABS: CALCIUM LEVEL 8.4 MG/DL (8.8-10.2); CARBON DIOXIDE LEVEL 31 MEQ/L (21-32); CHLORIDE LEVEL 103 MEQ/L (98-107); GLOMERULAR FILTRATION RATE > 60.0 (>35); POTASSIUM SERUM 3.8 MEQ/L (3.5-5.1); SODIUM LEVEL 138 MEQ/L (136-145)
[2020-01-28 16:44] LABS: BLOOD UREA NITROGEN 7 MG/DL (7-18); CHLORIDE LEVEL 103 MEQ/L (98-107); CREATININE FOR GFR 0.72 MG/DL (0.70-1.30); GLOMERULAR FILTRATION RATE > 60.0 (>35); GLUCOSE, FASTING 96 MG/DL (70-100); POTASSIUM SERUM 3.5 MEQ/L (3.5-5.1); SODIUM LEVEL 140 MEQ/L (136-145)
[2020-01-28 16:45] LABS: CALCIUM LEVEL 8.3 MG/DL (8.8-10.2); CARBON DIOXIDE LEVEL 34 mmol/L (20-29)
[2020-01-30 06:53] LABS: ALBUMIN 2.5 GM/DL (3.2-5.2); ALT/SGPT 13 U/L (12-78); BILIRUBIN,TOTAL 0.6 MG/DL (0.2-1.0); BLOOD UREA NITROGEN 16 MG/DL (7-18); CARBON DIOXIDE LEVEL 28 MEQ/L (21-32); CHLORIDE LEVEL 106 MEQ/L (98-107); CREATININE FOR GFR 0.86 MG/DL (0.70-1.30); GLOMERULAR FILTRATION RATE > 60.0 (>35); GLUCOSE, FASTING 91 MG/DL (70-100); POTASSIUM SERUM 3.8 MEQ/L (3.5-5.1); SODIUM LEVEL 139 MEQ/L (136-145); TOTAL PROTEIN 5.1 GM/DL (6.4-8.2)
== END 2019-11-07 11:30 | disposition home or self-care (01) | DRG 334 ==
LOC: M MSPAV 07:36
PROVIDERS: ADMIT Surgery; ATTEND Surgery
PROC: 0DTP4ZZ Resection of Rectum, Percutaneous Endoscopic Approach (ICD-10-PCS; principal; 2019-10-30)
PROC: 8E0W4CZ Robotic Assisted Procedure of Trunk Region, Percutaneous Endoscopic Approach (ICD-10-PCS; 2019-10-30)
DX: C18.2 Malignant neoplasm of ascending colon (principal); I48.91 Unspecified atrial fibrillation; I10 Essential (primary) hypertension; Z79.01 Long term (current) use of anticoagulants

== ENCOUNTER → 2019-12-22 | Outpatient (CLI) | payer MEDICARE ==
[~2019-12-22] MED LIST changes: -ALVIMOPAN 12 MG CAPSULE (ENTEREG) As Ordered ONE; -ALVIMOPAN 12 MG CAPSULE (ENTEREG) ONE; +ASCO250T20 PO; -BUPIVACAINE HCL 0.25% 30ML VIAL As Ordered ONE; +GNP45TAB2 PO; -HEPARIN SOD (PORCINE) 5000UNITS/ML 1ML VIAL/SYRINGE As Ordered ONE; -HEPARIN SOD (PORCINE) 5000UNITS/ML 1ML VIAL/SYRINGE ONE; -LIDOCAINE 1% SDV 30ML VIAL As Ordered ONE; -LIDOCAINE 2% 100MG/5ML SDV (FOR ANES.) As Ordered ONE; -MIDAZOLAM INJ 2MG/2ML VIAL (J2250 PER 1MG) As Ordered ONE; -ROCURONIUM BROMIDE 50 MG/5 ML VIAL As Ordered ONE; -cefoTEtan INJ 2GM VIAL (S0074 PER 500MG) As Ordered ONE; -cefoTEtan INJ 2GM VIAL (S0074 PER 500MG) ONE; -dexameTHASONE 4 MG/ML 1ML VIAL (J1100 PER 1MG) As Ordered ONE; -fentaNYL 250 MCG/5 ML INJECTION (J3010) As Ordered ONE; -metroNIDAZOLE/NACL 500MG(5MG/ML) 100ML BAG (S0030) As Ordered ONE; -metroNIDAZOLE/NACL 500MG(5MG/ML) 100ML BAG (S0030) ONE; -propofoL 200 MG/20 ML VIAL As Ordered ONE
[2019-12-22 14:00] LABS: BASO # 0.1 10^3/uL (0.0-0.2); BASO % 0.9 % (0.0-1.0); EOS # 0.1 10^3/uL (0.0-0.5); EOS % 1.2 % (0.0-3.0); HEMATOCRIT 38.9 % (42.0-52.0); HEMOGLOBIN 11.1 g/dl (13.5-17.5); LYMPH # 1.3 10^3/uL (1.5-5.0); LYMPH % 15.4 % (24.0-44.0); MEAN CORPUSCULAR HEMOGLOBIN 19.1 pg (27.0-33.0); MEAN CORPUSCULAR HGB CONC 28.5 g/dl (32.0-36.5); MEAN CORPUSCULAR VOLUME 66.8 fl (80.0-96.0); MONO # 0.8 10^3/uL (0.0-0.8); MONO % 9.5 % (0.0-5.0); NEUTROPHILS # 5.9 10^3/uL (1.5-8.5); NEUTROPHILS % 72.8 % (36.0-66.0); PLATELET COUNT, AUTOMATED 402 10^3/uL (150-450); RED BLOOD COUNT 5.82 10^6/uL (4.30-6.10); WHITE BLOOD COUNT 8.1 10^3/uL (4.0-10.0)
[2019-12-22 15:07] LABS: BLOOD UREA NITROGEN 17 MG/DL (7-18); CALCIUM LEVEL 9.1 MG/DL (8.8-10.2); CARBON DIOXIDE LEVEL 29 MEQ/L (21-32); CHLORIDE LEVEL 104 MEQ/L (98-107); CREATININE FOR GFR 1.03 MG/DL (0.70-1.30); GLOMERULAR FILTRATION RATE > 60.0 (>35); GLUCOSE, FASTING 97 MG/DL (70-100); POTASSIUM SERUM 4.2 MEQ/L (3.5-5.1); SODIUM LEVEL 139 MEQ/L (136-145)
[2019-12-22 15:08] LABS: ALBUMIN 3.7 GM/DL (3.2-5.2); ALT/SGPT 12 U/L (12-78); BILIRUBIN,TOTAL 0.5 MG/DL (0.2-1.0); PREALBUMIN 22.8 MG/DL (20.0-40.0); TOTAL PROTEIN 7.2 GM/DL (6.4-8.2)
== END ==
LOC: M PLALAB 11:59
PROVIDERS: ATTEND Surgery
DX: D12.8 Benign neoplasm of rectum (principal); C18.2 Malignant neoplasm of ascending colon

== ENCOUNTER → 2020-08-04 | Outpatient (REF) | payer MEDICARE ==
[2020-08-04 18:06] LABS: BASO # 0.1 10^3/uL (0.0-0.2); BASO % 0.7 % (0.0-1.0); EOS # 0.1 10^3/uL (0.0-0.5); EOS % 1.1 % (0.0-3.0); HEMATOCRIT 41.9 % (42.0-52.0); HEMOGLOBIN 12.3 g/dl (13.5-17.5); LYMPH # 1.6 10^3/uL (1.5-5.0); LYMPH % 19.1 % (24.0-44.0); MEAN CORPUSCULAR HEMOGLOBIN 19.9 pg (27.0-33.0); MEAN CORPUSCULAR HGB CONC 29.4 g/dl (32.0-36.5); MEAN CORPUSCULAR VOLUME 67.9 fl (80.0-96.0); MONO # 0.8 10^3/uL (0.0-0.8); MONO % 9.7 % (2.0-8.0); NEUTROPHILS # 5.6 10^3/uL (1.5-8.5); NEUTROPHILS % 68.9 % (36.0-66.0); PLATELET COUNT, AUTOMATED 357 10^3/uL (150-450); RED BLOOD COUNT 6.17 10^6/uL (4.30-6.10); WHITE BLOOD COUNT 8.2 10^3/uL (4.0-10.0)
[2020-08-04 18:41] LABS: ALBUMIN 3.8 GM/DL (3.2-5.2); ALT/SGPT 17 U/L (12-78); BILIRUBIN,TOTAL 0.5 MG/DL (0.2-1.0); BLOOD UREA NITROGEN 24 MG/DL (7-18); CALCIUM LEVEL 9.1 MG/DL (8.8-10.2); CARBON DIOXIDE LEVEL 32 MEQ/L (21-32); CHLORIDE LEVEL 105 MEQ/L (98-107); CPK CREATINE PHOSPHOKINASE 55 U/L (39-308); CREATININE FOR GFR 1.08 MG/DL (0.70-1.30); FERRITIN 82 NG/ML (26-388); GLOMERULAR FILTRATION RATE > 60.0 (>35); GLUCOSE, FASTING 92 MG/DL (70-100); IRON (FE) 67 UG/DL (65-175); POTASSIUM SERUM 4.7 MEQ/L (3.5-5.1); SODIUM LEVEL 140 MEQ/L (136-145); TOTAL PROTEIN 7.3 GM/DL (6.4-8.2)
== END ==
LOC: M SFHCPLAZ 15:33
PROVIDERS: ATTEND Physician Assistant Medical
DX: D50.0 Iron deficiency anemia secondary to blood loss (chronic) (principal); I10 Essential (primary) hypertension; E78.2 Mixed hyperlipidemia

== ENCOUNTER → 2020-10-08 | Outpatient (CLI) | payer MEDICARE | LOC: M LABSMTC 10:11 | PROVIDERS: ATTEND Anesthesiology | DX: Z01.818 Encounter for other preprocedural examination (principal); Z11.52 Encounter for screening for COVID-19 ==

== ENCOUNTER 2020-10-13 08:35 | Day surgery (SDC) | payer MEDICARE ==
[~2020-10-13] VITALS: Ht 188 cm; Wt 95.2 kg
[~2020-10-13 08:35] MED LIST changes: +NS 1,000 ML IV ONE
[2020-10-13] MEDS ORDERED: LIDOCAINE 2% 100MG/5ML SDV (FOR ANES.) As Ordered ONE (10:49)
[2020-10-13] MEDS ORDERED: propofoL 200 MG/20 ML VIAL As Ordered ONE ×2 (10:49→11:37)
[2020-10-13] MEDS ORDERED: PHENYLephrine 500MCG 5ML (100MCG/ML) SYRINGE As Ordered ONE (11:35)
--- NOTE | 2020-10-13 12:10 | ROOR ---
Patient Name: Fred Arguelles Procedure Date: 10/13/2020 11:03 AM Date of : 1935 Age: 85 Room: [facility] Gender: Male Note Status: Finalized Procedure: Colonoscopy Indications: High risk colon cancer surveillance: Personal history of colon cancer Providers: Yan Young MD Referring MD: Anupama FERNÁNDEZ Requesting Provider: Medicines: Monitored Anesthesia Care Complications: No immediate complications. Procedure: Pre-Anesthesia Assessment: - Prior to the procedure, a History and Physical was performed, and patient medications and allergies were reviewed. The patient is competent. The risks and benefits of the procedure and the sedation options and risks were discussed with the patient. All questions were answered and informed consent was obtained. Patient identification and proposed procedure were verified by the physician, the nurse and the anesthesiologist in the procedure room. Mental Status Examination: alert and oriented. Airway Examination: normal oropharyngeal airway and neck mobility. Respiratory Examination: clear to auscultation. CV Examination: normal. Prophylactic Antibiotics: The patient does not require prophylactic antibiotics. Prior Anticoagulants: The patient has taken Eliquis (apixaban), last dose was 4 days prior to procedure. ASA Grade Assessment: III - A patient with severe systemic disease. After reviewing the risks and benefits, the patient was deemed in satisfactory condition to undergo the procedure. The anesthesia plan was to use monitored anesthesia care (MAC). Immediately prior to administration of medications, the patient was re-assessed for adequacy to receive sedatives. The heart rate, respiratory rate, oxygen saturations, blood pressure, adequacy of pulmonary ventilation, and response to care were monitored throughout the procedure. The physical status of the patient was re-assessed after the procedure. The Colonoscope was introduced through the anus and advanced to the ileocolonic anastomosis. The colonoscopy was somewhat difficult due to fair prep, multiple polyps, prolonged distention The quality of the bowel preparation was adequate to identify polyps. Findings: Hemorrhoids were found on perianal exam. There was evidence of a prior functional end-to-end colo-rectal anastomosis in the rectum. This was patent and was characterized by healthy appearing mucosa, an intact staple line and visible sutures. The anastomosis was traversed. Estimated blood loss: none. There was evidence of a prior [id number] ileo-colonic anastomosis in the transverse colon. This was patent and was characterized by healthy appearing mucosa. The anastomosis was traversed. Eight sessile polyps were found in the transverse colon. The polyps were 4 to 10 mm in size. These polyps were removed with a hot snare. Resection and retrieval were complete. Estimated blood loss was minimal. Four sessile polyps were found in the descending colon. The polyps were 4 to 10 mm in size. These polyps were removed with a hot snare. Resection and retrieval were complete. Estimated blood loss was minimal. Three semi-pedunculated polyps were found in the rectum. The polyps were 2 to 5 mm in size. These polyps were removed with a hot snare. Resection and retrieval were complete. Estimated blood loss: none. The retroflexed view of the distal rectum and anal verge was normal and showed no anal or rectal abnormalities. Impression: - Hemorrhoids found on perianal exam. - Patent functional end-to-end colo-rectal anastomosis, characterized by healthy appearing mucosa, an intact staple line and visible sutures. - Patent [id number] ileo-colonic anastomosis, characterized by healthy appearing mucosa. - Eight 4 to 10 mm polyps in the transverse colon, removed with a hot snare. Resected and retrieved. - Four 4 to 10 mm polyps in the descending colon, removed with a hot snare. Resected and retrieved. - Three 2 to 5 mm polyps in the rectum, removed with a hot snare. Resected and retrieved. - The distal rectum and anal verge are normal on retroflexion view. Recommendation: - Discharge patient to home (ambulatory). - Await pathology results. - Repeat colonoscopy in 1 year for surveillance. - Resume Eliquis (apixaban) at prior dose in 2 days. Refer to primary physician for further adjustment of therapy. Procedure Code(s): --- Professional --- 49670, Colonoscopy, flexible; with removal of tumor(s), polyp(s), or other lesion(s) by snare technique Diagnosis Code(s): --- Professional --- Z85.038, Personal history of other malignant neoplasm of large intestine K64.9, Unspecified hemorrhoids Z98.0, Intestinal bypass and anastomosis status K63.5, Polyp of colon K62.1, Rectal polyp CPT copyright 2019 [employer]. All rights reserved. The codes documented in this report are preliminary and upon bilingual executive assistant review may be revised to meet current compliance requirements. Yan Young MD Yan Young MD 10/13/2020 12:10:09 PM Electronically signed by Yan Young MD Number of Addenda: 0 Note Initiated On: 10/13/2020 11:03 AM Estimated Blood Loss: Estimated blood loss: none.
[2020-10-13 12:25] VITALS: BP 188/96
== END 2020-10-13 12:38 | disposition home or self-care (01) ==
LOC: M OPP 08:35
PROVIDERS: ATTEND Surgery
DX: K63.5 Polyp of colon (principal); K62.1 Rectal polyp; K64.8 Other hemorrhoids; Z98.0 Intestinal bypass and anastomosis status; Z85.038 Personal history of other malignant neoplasm of large intestine; Z08 Encounter for follow-up examination after completed treatment for malignant neoplasm; Z79.899 Other long term (current) drug therapy; Z93.3 Colostomy status; Z86.73 Personal history of transient ischemic attack (TIA), and cerebral infarction without residual deficits
CPT/HCPCS: 45385; 88305; J2370

== ENCOUNTER → 2020-11-25 | Outpatient (CLI) | payer MEDICARE ==
[~2020-11-25] MED LIST changes: -NS 1,000 ML IV ONE
[2020-11-25 18:16] LABS: BASO # 0.1 10^3/uL (0.0-0.2); BASO % 0.6 % (0.0-1.0); EOS # 0.1 10^3/uL (0.0-0.5); EOS % 1.2 % (0.0-3.0); HEMATOCRIT 42.1 % (42.0-52.0); HEMOGLOBIN 12.3 g/dl (13.5-17.5); LYMPH # 1.6 10^3/uL (1.5-5.0); LYMPH % 19.2 % (24.0-44.0); MEAN CORPUSCULAR HEMOGLOBIN 19.7 pg (27.0-33.0); MEAN CORPUSCULAR HGB CONC 29.2 g/dl (32.0-36.5); MEAN CORPUSCULAR VOLUME 67.4 fl (80.0-96.0); MONO # 0.8 10^3/uL (0.0-0.8); MONO % 9.4 % (2.0-8.0); NEUTROPHILS # 5.7 10^3/uL (1.5-8.5); NEUTROPHILS % 69.4 % (36.0-66.0); PLATELET COUNT, AUTOMATED 309 10^3/uL (150-450); RED BLOOD COUNT 6.25 10^6/uL (4.30-6.10); WHITE BLOOD COUNT 8.3 10^3/uL (4.0-10.0)
[2020-11-25 18:33] LABS: INR 1.22; PROTHROMBIN TIME 15.9 SECONDS (12.7-14.5)
[2020-11-25 18:34] LABS: PARTIAL THROMBOPLASTIN TIME 35.9 SECONDS (25.9-37.0)
[2020-11-25 18:53] LABS: ALBUMIN 3.7 GM/DL (3.2-5.2); ALT/SGPT 21 U/L (12-78); BILIRUBIN,TOTAL 0.6 MG/DL (0.2-1.0); BLOOD UREA NITROGEN 16 MG/DL (7-18); CALCIUM LEVEL 9.3 MG/DL (8.8-10.2); CARBON DIOXIDE LEVEL 29 MEQ/L (21-32); CHLORIDE LEVEL 108 MEQ/L (98-107); CREATININE FOR GFR 0.94 MG/DL (0.70-1.30); FERRITIN 53 NG/ML (26-388); GLOMERULAR FILTRATION RATE > 60.0 (>35); GLUCOSE, FASTING 97 MG/DL (70-100); NT-PRO BNP 781 PG/ML (<450); POTASSIUM SERUM 4.4 MEQ/L (3.5-5.1); SODIUM LEVEL 141 MEQ/L (136-145); TOTAL PROTEIN 7.2 GM/DL (6.4-8.2)
== END ==
LOC: M LAB 17:12
PROVIDERS: ATTEND Family Medicine
DX: I48.91 Unspecified atrial fibrillation (principal); I10 Essential (primary) hypertension

== ENCOUNTER → 2021-09-21 | Outpatient (CLI) | payer MEDICARE ==
[~2021-09-21] MED LIST changes: +LOSA50TA28 PO; -LOSA50TA88 PO; +OMEP-173 PO; -OMEP-218 PO
[2021-09-21 18:08] LABS: BASO # 0.1 10^3/uL (0.0-0.2); BASO % 0.6 % (0.0-1.0); EOS # 0.1 10^3/uL (0.0-0.5); EOS % 0.7 % (0.0-3.0); HEMATOCRIT 41.9 % (42.0-52.0); HEMOGLOBIN 12.3 g/dl (13.5-17.5); LYMPH # 1.2 10^3/uL (1.5-5.0); LYMPH % 14.6 % (24.0-44.0); MEAN CORPUSCULAR HEMOGLOBIN 19.6 pg (27.0-33.0); MEAN CORPUSCULAR HGB CONC 29.4 g/dl (32.0-36.5); MEAN CORPUSCULAR VOLUME 66.8 fl (80.0-96.0); MONO # 0.7 10^3/uL (0.0-0.8); MONO % 8.9 % (2.0-8.0); NEUTROPHILS # 6.2 10^3/uL (1.5-8.5); NEUTROPHILS % 74.7 % (36.0-66.0); PLATELET COUNT, AUTOMATED 325 10^3/uL (150-450); RED BLOOD COUNT 6.27 10^6/uL (4.30-6.10); WHITE BLOOD COUNT 8.3 10^3/uL (4.0-10.0)
[2021-09-21 18:33] LABS: ALT/SGPT 14 U/L (12-78); BILIRUBIN,TOTAL 0.5 MG/DL (0.2-1.0); BLOOD UREA NITROGEN 18 MG/DL (7-18); CALCIUM LEVEL 9.4 MG/DL (8.8-10.2); CARBON DIOXIDE LEVEL 31 MEQ/L (21-32); CHLORIDE LEVEL 105 MEQ/L (98-107); CHOLESTEROL LEVEL 136 MG/DL (<200); GLOMERULAR FILTRATION RATE > 60.0 (>35); GLUCOSE, FASTING 99 MG/DL (70-100); POTASSIUM SERUM 4.1 MEQ/L (3.5-5.1); SODIUM LEVEL 143 MEQ/L (136-145); TRIGLYCERIDES LEVEL 114 MG/DL (<150)
[2021-09-21 18:34] LABS: ALBUMIN 3.7 GM/DL (3.2-5.2); FERRITIN 39 NG/ML (26-388); HDL CHOLESTEROL 44 MG/DL (>40); IRON (FE) 52 UG/DL (65-175); LDL CHOLESTEROL 69 MG/DL (<100); NON-HDL-C 92 MG/DL; TOTAL PROTEIN 7.2 GM/DL (6.4-8.2)
== END ==
LOC: M PLALAB 14:22
PROVIDERS: ATTEND Physician Assistant Medical
DX: E78.2 Mixed hyperlipidemia (principal); D50.0 Iron deficiency anemia secondary to blood loss (chronic)

== ENCOUNTER → 2021-12-01 | Outpatient (CLI) | payer MEDICARE | LOC: M LABSMTC 09:18 | PROVIDERS: ATTEND Anesthesiology | DX: Z01.818 Encounter for other preprocedural examination (principal); Z11.52 Encounter for screening for COVID-19 ==

== ENCOUNTER 2021-12-06 11:30 | Day surgery (SDC) | payer MEDICARE ==
[~2021-12-06] VITALS: Ht 185.4 cm; Wt 94.3 kg
[~2021-12-06 11:30] MED LIST changes: +LIDOCAINE 2% 100MG/5ML SDV (FOR ANES.) As Ordered ONE; +NS 1,000 ML IV ONE
[2021-12-06] MEDS ORDERED: propofoL 200 MG/20 ML VIAL As Ordered ONE (11:32)
[2021-12-06] MEDS ORDERED: fentaNYL 100 MCG/2 ML INJECTION As Ordered ONE (14:00)
[2021-12-06 15:00] VITALS: BP 163/77
== END 2021-12-06 15:15 | disposition home or self-care (01) ==
LOC: M OPP 11:30
PROVIDERS: ATTEND Surgery
DX: D12.3 Benign neoplasm of transverse colon (principal); D12.4 Benign neoplasm of descending colon; K57.30 Diverticulosis of large intestine without perforation or abscess without bleeding; K64.9 Unspecified hemorrhoids; Z98.0 Intestinal bypass and anastomosis status; Z85.038 Personal history of other malignant neoplasm of large intestine; Z08 Encounter for follow-up examination after completed treatment for malignant neoplasm; D50.9 Iron deficiency anemia, unspecified; K31.89 Other diseases of stomach and duodenum; K57.10 Diverticulosis of small intestine without perforation or abscess without bleeding; K44.9 Diaphragmatic hernia without obstruction or gangrene; I10 Essential (primary) hypertension; E78.00 Pure hypercholesterolemia, unspecified; Z79.01 Long term (current) use of anticoagulants; Z79.02 Long term (current) use of antithrombotics/antiplatelets; Z79.899 Other long term (current) drug therapy; Z80.8 Family history of malignant neoplasm of other organs or systems; Z86.73 Personal history of transient ischemic attack (TIA), and cerebral infarction without residual deficits
CPT/HCPCS: 43239; 45380; 45385; 88305; J3010

== ENCOUNTER → 2022-09-22 | Outpatient (CLI) | payer MEDICARE ==
[~2022-09-22] MED LIST changes: -LIDOCAINE 2% 100MG/5ML SDV (FOR ANES.) As Ordered ONE; -NS 1,000 ML IV ONE; -POTA10CA32 PO; +POTA10CA60 PO
[2022-09-22 16:00] LABS: BASO # 0.1 10^3/uL (0.0-0.2); BASO % 0.7 % (0.0-1.0); EOS # 0.1 10^3/uL (0.0-0.5); EOS % 0.6 % (0.0-3.0); HEMATOCRIT 40.3 % (42.0-52.0); HEMOGLOBIN 11.7 g/dl (13.5-17.5); LYMPH # 1.1 10^3/uL (1.5-5.0); LYMPH % 11.8 % (24.0-44.0); MEAN CORPUSCULAR HEMOGLOBIN 19.6 pg (27.0-33.0); MEAN CORPUSCULAR VOLUME 67.6 fl (80.0-96.0); MONO # 0.9 10^3/uL (0.0-0.8); MONO % 10.1 % (2.0-8.0); NEUTROPHILS # 6.9 10^3/uL (1.5-8.5); NEUTROPHILS % 76.5 % (36.0-66.0); PLATELET COUNT, AUTOMATED 310 10^3/uL (150-450); RED BLOOD COUNT 5.96 10^6/uL (4.30-6.10)
[2022-09-22 16:30] LABS: ALBUMIN 3.9 G/DL (3.2-5.2); ALKALINE PHOSPHATASE 82 U/L (46-116); ALT/SGPT 11 U/L (7.0-40); AST/SGOT < 8 U/L (<34); BLOOD UREA NITROGEN 16 MG/DL (9-23); CALCIUM LEVEL 9.6 MG/DL (8.3-10.6); CARBON DIOXIDE LEVEL 32 MMOL/L (20-31); CHLORIDE LEVEL 104 MMOL/L (98-107); CHOLESTEROL LEVEL 124 MG/DL (<200); CHOLESTEROL RISK RATIO 2.63 (<5); CREATININE FOR GFR 1.02 MG/DL (0.70-1.30); GLOMERULAR FILTRATION RATE > 60.0 (>35); GLUCOSE, FASTING 82 MG/DL (74-106); IRON (FE) 62 UG/DL (65-175); LDL CHOLESTEROL 64.8 MG/DL (<100); POTASSIUM SERUM 4.3 MMOL/L (3.5-5.1); SODIUM LEVEL 140 MMOL/L (136-145); TOTAL PROTEIN 6.8 G/DL (5.7-8.2); TRIGLYCERIDES LEVEL 61 MG/DL (<150)
[2022-09-22 16:32] LABS: FERRITIN 25.1 NG/ML (10.5-307.3)
== END ==
LOC: M PLALAB 12:06
PROVIDERS: ATTEND Physician Assistant Medical
DX: D50.9 Iron deficiency anemia, unspecified (principal); E78.2 Mixed hyperlipidemia; I11.0 Hypertensive heart disease with heart failure